=== PATIENT | female | born 1955 | race Caucasian/White ===

== ENCOUNTER 2018-01-25 22:51 | Inpatient (IN) | payer OTHER ==
[2018-01-26] VITALS (15 sets, daily range): BP systolic 121–180; BP diastolic 57–81; PULSE 65–75; RESP 12–20; TEMP 97.5–98.4; O2SAT 93–99
[2018-01-26] MEDS ORDERED: LABETALOL HCL 100 MG/20 ML VIAL ONE (01:27)
[2018-01-26] MEDS: LABETALOL HCL 100 MG/20 ML VIAL IV PUSH PRN ×4 (01:30→21:50)
[2018-01-26] MEDS ORDERED: MAGNESIUM HYDROXIDE SUSP 30 ML CUP PO PRN (01:45)
[2018-01-26] MEDS ORDERED: ACETAMINOPHEN/HYDROcodone 325 MG/5 MG TAB PO PRN (01:45)
[2018-01-26] MEDS ORDERED: RESP: ALBUTEROL 2.5 MG/IPRATROPIUM 0.5 MG NEB (PRN) INH (01:45)
[2018-01-26] MEDS ORDERED: BISACODYL 10 MG SUPP RECTAL PRN ×2 (01:45→19:45)
[2018-01-26] MEDS ORDERED: SODIUM CHLORIDE 0.9% FLUSH 10 ML FLUSH IV FLUSH PRN (01:45)
[2018-01-26] MEDS ORDERED: SENNOSIDES 8.6 MG TAB PO PRN (01:45)
[2018-01-26] MEDS ORDERED: CHLORHEXIDINE GLUCONATE 2 % 1 PACK (2 CLOTHS) TOP PRN (01:45)
[2018-01-26] MEDS ORDERED: NURSING INFORMATION XX SCH (01:45)
[2018-01-26] MEDS ORDERED: LACTULOSE SYRUP 20 GM/30 ML CUP PO PRN (01:45)
[2018-01-26] MEDS ORDERED: ONDANSETRON ODT 4 MG TAB PO PRN (02:00)
[2018-01-26] MEDS: NS + KCL 20 MEQ INJ 1,000 ML IV SCH ×4 (02:03→20:00)
--- NOTE | 2018-01-26 02:05 | HHI.HP ---
HPI Service Critical Care Medicine Primary Care Physician Unknown Admission Diagnosis Diagnosis: Chief Complaint: Severe headache since 5 weeks Travel History International Travel<30 Days: No Contact w/Intl Traveler <30 Da: No Traveled to Known Affected Are: No History of Present Illness 62-year-old female who presented to [facility] on 01/25/2018 with headache going on for 5 weeks. She describes the headache as stabbing in character initially started on the right side however subsequently became generalized and was constant. She denies any history of falls or head trauma recently. She denies being on any blood thinners at home. She recently underwent a breast biopsy about 2 weeks prior to her headache starting. She also has a history of bladder prolapse, mitral valve issues and tremors and has been diagnosed with cervical degenerative disc disease. She also has long- standing dizziness/vertigo secondary to Mnire's disease. Patient was transferred to [facility] as her head CT done at [facility] revealed right-sided subdural hematoma which was discussed with the neurosurgeon on-call at [facility] who recommended transferring patient. Patient was accepted for admission at [place] by Dr. Meyers and received Keppra prior to transfer. I evaluated the patient immediately on being notified of her arrival in the ICU at [place]. At that time she was resting in bed comfortably not in any acute distress. She rated her headache almost gone at this time. She denied any focal weakness in either extremities. She denied any speech disturbance or visual disturbance. She had a systolic blood pressure in the 170s on arrival and received labetalol 10 mg IV. History was obtained by reviewing records and discussion with patient and nursing staff. Review of Systems Constitutional: DENIES: Diaphoretic episodes, Fatigue, Fever, Weight gain, Weight loss, Chills, Dizziness, Change in appetite, Night Sweats Endocrine: DENIES: Abnorml menstrual pattern, Heat/cold intolerance, Polydipsia , Polyuria, Polyphagia Eyes: DENIES: Blurred vision, Diplopia, Eye inflammation, Eye pain, Vision loss , Photosensitivity, Double Vision Ears, nose, mouth, throat: COMPLAINS OF: Vertigo, DENIES: Tinnitus, Hearing loss, Nasal discharge, Oral lesions, Throat pain, Hoarseness, Ear Pain, Running Nose, Epistaxis, Sinus Pain, Toothache, Odynophagia Respiratory: DENIES: Apneas, Cough, Snoring, Wheezing, Hemoptysis, Sputum production, Shortness of breath Cardiovascular: DENIES: Chest pain, Palpitations, Syncope, Dyspnea on Exertion , PND, Lower Extremity Edema, Orthopnea, Claudication Gastrointestinal: DENIES: Abdominal pain, Black stools, Bloody stools, Constipation, Diarrhea, Nausea, Vomiting, Difficulty Swallowing, Anorexia Genitourinary: DENIES: Abnormal vaginal bleeding, Dysmenorrhea, Dyspareunia, Sexual dysfunction, Urinary frequency, Urinary incontinence, Urgency, Hematuria , Dysuria, Nocturia, Vaginal discharge Musculoskeletal: COMPLAINS OF: Back pain, Neck pain, DENIES: Joint pain, Muscle aches, Stiffness, Joint Swelling Integumentary: COMPLAINS OF: Abnormal pigmentation, Pruritus, Rash, Nail changes Hematologic/lymphatic: DENIES: Bruising, Lymphadenopathy Immunologic/allergic: DENIES: Eczema, Urticaria Neurologic: DENIES: Abnormal gait, Headache, Localized weakness, Paresthesias, Seizures, Speech Problems, Tremor, Poor Balance Psychiatric: COMPLAINS OF: Depression Past Family Social History Allergies: Coded Allergies: adhesive (Verified Allergy, Unknown, 01/26/18) gabapentin (Verified Allergy, Unknown, 01/26/18) primidone (Verified Allergy, Unknown, 01/26/18) Past Medical History CAD, GI disorder Past Surgical History Hysterectomy Reported Medications Tylenol 650 mg p.o. twice daily as needed, vitamin C 500 mg p.o. 3 times daily, align 4 mg p.o. daily, Wellbutrin SR 200 mg p.o. twice daily, vitamin D3 2000 units p.o. twice daily, Premarin 0.9 mg p.o. daily, Synthroid 112 mcg p.o. daily , loratadine 10 mg p.o. daily as needed, Protonix 40 mg p.o. daily, simethicone 180 mg p.o. 4 times daily as needed, Percocet as needed, Vicoprofen as needed, Flexeril 5 mg p.o. 3 times daily Family History No significant family history Social History No history of alcohol abuse any other substance abuse Physical Exam Vital Signs Heart rate 70s, blood pressure 170s/70s, respiratory rate 18, O2 sat 98% on room air Physical Exam HEENT/Neuro: No pallor or icterus, tongue moist, MATEO, Awake alert oriented 3 , nonfocal grossly, moving all 4 extremities Neck: No JVD Chest/pulmonary: CTA bilaterally Cardiovascular: S1-S2 regular no gallop or murmur GI/abdomen: Soft, nontender, bowel sounds present Extremities: Warm bilaterally, no edema Laboratory No labs sent over from [facility]. Will obtain stat CBC CMP coags Imaging Head CT done at [facility] reported as chronic right-sided subdural hematoma with some hyperdense elements. Collection measures 13 mm in thickness with 8 mm contralateral shift of the septum pellucidum. This CT scan was done at 1947 hrs. on 01/25/2018. Caprini VTE Risk Assessment Caprini VTE Risk Assessment: Mod/High Risk (score >= 2) VTE Pharm Contraindication: Intracranial lesions Caprini Risk Assessment Model Point Value = 1 Point Value = 2 Point Value = 3 Point Value = 5 Age 41-60 Minor surgery BMI > 25 kg/m2 Swollen legs Varicose veins or History of unexplained or recurrent spontaneous Oral contraceptives or hormone replacement Sepsis (< 1 month) Serious lung disease, including pneumonia (< 1 month) Abnormal pulmonary function Acute myocardial infarction Congestive heart failure (< 1 month) History of inflammatory bowel disease Medical patient at bed rest Age 61-74 Arthroscopic surgery Major open surgery (> 45 min) Laparoscopic surgery (> 45 min) Malignancy Confined to bed (> 72 hours) Immobilizing plaster cast Central venous access Age >= 75 History of VTE Family history of VTE Factor V Leiden Prothrombin [id number] Lupus anticoagulant Anticardiolipin antibodies Elevated serum homocysteine Heparin-induced thrombocytopenia Other congenital or acquired thrombophilia Stroke (< 1 month) Elective arthroplasty Hip, pelvis, or leg fracture Acute spinal cord injury (< 1 month) Prophylaxis Regimen Total Risk Factor Score Risk Level Prophylaxis Regimen 0-1 Low Early ambulation 2 Moderate Order ONE of the following: *Sequential Compression Device (SCD) *Heparin 5000 units SQ BID 3-4 Higher Order ONE of the following medications: *Heparin 5000 units SQ TID *Enoxaparin/Lovenox 40 mg SQ daily (WT < 150 kg, CrCl > 30 mL/min) *Enoxaparin/Lovenox 30 mg SQ daily (WT < 150 kg, CrCl > 10-29 mL/min) *Enoxaparin/Lovenox 30 mg SQ BID (WT < 150 kg, CrCl > 30 mL/min) AND/OR *Sequential Compression Device (SCD) 5 or more Highest Order ONE of the following medications: *Heparin 5000 units SQ TID (Preferred with Epidurals) *Enoxaparin/Lovenox 40 mg SQ daily (WT < 150 kg, CrCl > 30 mL/min) *Enoxaparin/Lovenox 30 mg SQ daily (WT < 150 kg, CrCl > 10-29 mL/min) *Enoxaparin/Lovenox 30 mg SQ BID (WT < 150 kg, CrCl > 30 mL/min) AND *Sequential Compression Device (SCD) Assessment and Plan Assessment and Plan 62-year-old female with: Right-sided subdural hematoma with [id number] midline shift Hypertension Chronic neck pain secondary to C-spine degenerative disc disease Plan: Admitted to ICU N.p.o. Follow neuro checks Keppra for seizure prophylaxis Repeat head CT without contrast Obtain stat labs Labetalol as needed to keep SBP below 1 40 mmHg IV hydration Follow intake output, monitor and replete electrolytes, follow BUN/creatinine Dr. Meyers will be obtaining neurosurgery consult in a.m. Percocet/morphine as needed for pain Bronchodilators as needed GI prophylaxis with Protonix DVT prophylaxis with SCDs Further recommendations following review of head CT and labs Pierce Dowling MD Jan 26, 2018 02:05
[2018-01-26 03:10] LABS: AUTOMATED NEUTROPHIL # 4.3 TH/MM3 (1.8-7.7); BASOPHIL % 0.6 % (0.0-2.0); EOSINOPHIL # 0.1 TH/MM3 (0-0.4); EOSINOPHIL % 1.1 % (0.0-4.0); HEMATOCRIT 40.2 % (35.0-46.0); HEMOGLOBIN 13.3 GM/DL (11.6-15.3); LYMPH % 27.7 % (9.0-44.0); LYMPHOCYTE # 1.9 TH/MM3 (1.0-4.8); MEAN CELL VOLUME 92.6 FL (80.0-100.0); MEAN CORPUSCULAR HEMOGLOBIN 30.6 PG (27.0-34.0); MEAN CORPUSCULAR HGB CONC 33.1 % (32.0-36.0); MEAN PLATELET VOLUME 7.5 FL (7.0-11.0); MONO % 7.4 % (0.0-8.0); MONOCYTE # 0.5 TH/MM3 (0-0.9); NEUT % 63.2 % (16.0-70.0); PLATELET COUNT 234 TH/MM3 (150-450); RED BLOOD COUNT 4.35 MIL/MM3 (4.00-5.30); RED CELL DISTRIBUTION WIDTH 14.3 % (11.6-17.2); WHITE BLOOD COUNT 6.8 TH/MM3 (4.0-11.0)
[2018-01-26 03:23] LABS: ALBUMIN 2.8 GM/DL (3.4-5.0); ALT (GPT) 23 U/L (10-53); AST (GOT) 26 U/L (15-37); BICARBONATE 25.4 MEQ/L (21.0-32.0); BLOOD UREA NITROGEN 14 MG/DL (7-18); CHLORIDE 106 MEQ/L (98-107); GLOMERULAR FILTRATION RATE 63 ML/MIN (>89); GLUCOSE,RANDOM 108 MG/DL (74-106); SODIUM (NA) 140 MEQ/L (136-145)
[2018-01-26 03:25] LABS: ALKALINE PHOSPHATASE 91 U/L (45-117); TOTAL BILIRUBIN ADULT 0.3 MG/DL (0.2-1.0); TOTAL PROTEIN 6.1 GM/DL (6.4-8.2)
[2018-01-26] MEDS: CHLORHEXIDINE GLUCONATE 2 % 1 PACK (2 CLOTHS) TOP SCH (04:00)
[2018-01-26 04:46] LABS: PROTHROMBIN TIME - PATIENT 10.5 SEC (9.8-11.6)
[2018-01-26] MEDS: MORPHINE SULFATE 4 MG/ML INJ IV PUSH PRN ×3 (05:31→14:56)
--- NOTE | 2018-01-26 06:36 | RADRPT ---
EXAM DATE: 01/26/2018 5:27 AM EDT AGE/SEX: 62 years / Female INDICATIONS: Cephalgia; subdural bleed. CLINICAL DATA: This is the patient's initial encounter. Patient reports that signs and symptoms have been present for 1 day and indicates a pain score of 4/10. MEDICAL/SURGICAL HISTORY: None. None. RADIATION DOSE: 56.35 CTDI (mGy) COMPARISON: No prior exams available for comparison. TECHNIQUE: CT of the head without contrast. Using automated exposure control and adjustment of the mA and/or kV according to patient size, radiation dose was kept as low as reasonably achievable to ob tain optimal diagnostic quality images. DICOM format image data is available electronically for revi ew and comparison. FINDINGS: Cerebrum: The ventricles are normal for age. No evidence of mass lesion, hemorrhage or acute infar ction. There is a subdural hygroma on the right side without any active blood products. There is some mass effect with shift of the septum pellucidum by 3 to 4 mm. There is sulcal effacement on the righ t Posterior Fossa: The cerebellum and brainstem are intact. The 4th ventricle is midline. The cerebe llopontine angle is unremarkable. Extracranial: The visualized portion of the orbits is intact. Skull: The calvaria is intact. No evidence of skull fracture. CONCLUSION: 1. Right-sided subdural hygroma with mass effect on the brain parenchyma and shift from right to lef t. No active hemorrhage is seen. Electronically signed by: Alfredo Molina MD 01/26/2018 6:34 AM EDT
[2018-01-26] MEDS: SODIUM CHLORIDE 0.9% FLUSH 10 ML FLUSH IV FLUSH SCH ×2 (08:06→21:00)
[2018-01-26] MEDS: levETIRAcetam INJ 500 MG in SODIUM CHLORIDE 0.9% INJ 100 ML IV SCH ×2 (08:06→21:00)
[2018-01-26] MEDS ORDERED: FAMOTIDINE 20 MG/2 ML VIAL IV PUSH SCH (09:00)
[2018-01-26] MEDS ORDERED: DOCUSATE SODIUM 50 MG/SENNA 8.6 MG TAB PO SCH (09:00)
[2018-01-26] MEDS ORDERED: PANTOPRAZOLE SODIUM 40 MG VIAL IV PUSH SCH (09:00)
--- NOTE | 2018-01-26 10:51 | PD.CONS ---
(Luis Gomez MD) [facility] Service neurosurgery Consult Requested By Primary Care Physician Unknown (Luis Gomez MD) Service Neurosurgery Consult Requested By Dr. Stein Reason for Consult subdural hygroma, subacute, with shift, but neurologically stable History of Present Illness Ms. Valenzuela is a 62 year old female who complains of headaches that was worsening over the last 5 weeks. She initially presented to [facility] yesterday 01/25/2018 due to intractable headaches. CT brain was obtained which showed a right subdural hematoma and she was transferred to [facility] for neurosurgical evaluation. The patient denies any history of trauma, falling, head injury or whiplash type injuries. She denies focal weakness, seizures, vision changes, paresthesias, nausea or vomiting. Repeat CT Brain here at [place] shows a right-sided subdural hygroma with mass effect on the brain parenchyma and shift from right to left. No active hemorrhage is seen. Neurosurgical evaluation was requested. (Karol Hilario) Review of Systems Constitutional: DENIES: Fever, Chills Eyes: DENIES: Vision loss Respiratory: DENIES: Cough, Hemoptysis, Shortness of breath Cardiovascular: DENIES: Chest pain Gastrointestinal: DENIES: Abdominal pain, Bloody stools, Nausea, Vomiting Genitourinary: DENIES: Urinary incontinence Musculoskeletal: COMPLAINS OF: Stiffness, Neck pain Neurologic: COMPLAINS OF: Headache, DENIES: Localized weakness, Paresthesias, Seizures, Speech Problems (Karol Hilario) Past Family Social History Allergies: Coded Allergies: adhesive (Verified Allergy, Unknown, 01/26/18) gabapentin (Verified Allergy, Unknown, 01/26/18) primidone (Verified Allergy, Unknown, 01/26/18) Past Medical History GI disorder Past Surgical History Hysterectomy Reported Medications Tylenol 650 mg p.o. twice daily as needed, vitamin C 500 mg p.o. 3 times daily, align 4 mg p.o. daily, Wellbutrin SR 200 mg p.o. twice daily, vitamin D3 2000 units p.o. twice daily, Premarin 0.9 mg p.o. daily, Synthroid 112 mcg p.o. daily , loratadine 10 mg p.o. daily as needed, Protonix 40 mg p.o. daily, simethicone 180 mg p.o. 4 times daily as needed, Percocet as needed, Vicoprofen as needed, Flexeril 5 mg p.o. 3 times daily Active Ordered Medications Current Medications Medications (Trade) Dose Ordered Sig/Bianka Route PRN Reason Start Time Stop Time Status Last Admin Dose Admin Potassium Chloride/Sodium Chloride 1,000 ml @ 100 mls/hr Q10H IV 01/26/18 01:37 01/26/18 12:15 Sodium Chloride (NS Flush) 2 ml UNSCH PRN IV FLUSH FLUSH AFTER USING IV ACCESS 01/26/18 01:45 Sodium Chloride (NS Flush) 2 ml BID IV FLUSH 01/26/18 09:00 01/26/18 08:06 Acetaminophen/ Hydrocodone Bitart ([place] 5-325 Mg) 1 tab Q4H PRN PO PAIN SCALE 1 TO 5 01/26/18 01:45 Morphine Sulfate (Morphine Inj) 2 mg Q2H PRN IV PUSH PAIN SCALE 6 TO 10 01/26/18 01:45 01/26/18 14:56 Ondansetron HCl (Zofran Odt) 4 mg Q6H PRN PO NAUSEA OR VOMITING 01/26/18 02:00 Albuterol/ Ipratropium (Duoneb Neb) 1 ampule Q2HR NEB PRN INH WHEEZING 01/26/18 01:45 Miscellaneous Information ([facility] Nursing Information) 1 Q361D XX 01/26/18 01:45 Chlorhexidine Gluconate (Chlorhexidine 2% Cloth) 3 pack Taper DAILY@04 TOP 01/26/18 04:00 01/22/19 03:59 01/26/18 04:00 Chlorhexidine Gluconate (Chlorhexidine 2% Cloth) 3 pack UNSCH PRN TOP HYGIENIC CARE 01/26/18 01:45 Senna/Docusate Sodium (Angélica-Colace) 1 tab BID PO 01/26/18 09:00 01/26/18 08:07 Magnesium Hydroxide (Milk Of Magnesia Liq) 30 ml Q12H PRN PO Mild constipation 01/26/18 01:45 Sennosides (Senokot) 17.2 mg Q12H PRN PO Moderate constipation 01/26/18 01:45 Bisacodyl (Dulcolax Supp) 10 mg DAILY PRN RECTAL SEVERE CONSITIPATION 01/26/18 01:45 Lactulose (Lactulose Liq) 30 ml DAILY PRN PO SEVERE CONSITIPATION 01/26/18 01:45 Levetriacetam 500 mg/Sodium Chloride 105 ml @ 420 mls/hr Q12HR IV 01/26/18 09:00 01/26/18 08:06 Labetalol HCl (Trandate Inj) 10 mg Q4H PRN IV PUSH SBP greater than 140mm Hg 01/26/18 01:45 01/26/18 12:16 Pantoprazole Sodium (Protonix Inj) 40 mg Q24H IV PUSH 01/26/18 09:00 01/26/18 08:07 Family History No significant family history Social History Denies tobacco, etoh, or illicit drug use (Karol Hilario) Physical Exam Vital Signs Vital Signs Date Time Temp Pulse Resp B/P (MAP) Pulse Ox O2 Delivery O2 Flow Rate FiO2 01/26/18 10:00 65 01/26/18 09:36 98 01/26/18 08:00 98.2 68 14 135/61 (85) 94 01/26/18 08:00 68 01/26/18 07:00 72 01/26/18 07:00 97 Room Air 01/26/18 06:26 93 01/26/18 06:00 72 01/26/18 04:00 97.9 70 12 121/57 (78) 94 01/26/18 04:00 66 01/26/18 02:00 67 01/26/18 01:30 73 01/26/18 01:30 Room Air Physical Exam The patient is alert, awake and oriented to time, place and person. Speech is fluent. Cranial nerve examination: pupils to be equal, round and reactive to light. Extra-ocular movements are intact. Facial motor and sensory function are normal and symmetrical. Gross hearing appears intact. Sternocleidomastoid and trapezius muscles are symmetrical. Other cranial nerves are intact. Neck is soft and supple with a good range of motion without pain. Muscle strength shows mild weakness in her left upper extremity with a pronator drift. Sensory examination is intact to light touch and pin prick in both the upper and lower extremities. Deep tendon reflexes are symmetrical in both upper and lower extremities. There is a bilateral plantar flexion response. Cerebellar examination is unremarkable, without deficits. Chest/pulmonary: CTA bilaterally Cardiovascular: S1-S2 regular no gallop or murmur GI/abdomen: Soft, nontender, bowel sounds present Extremities: Warm bilaterally, no edema Skin. Warm and dry Laboratory Laboratory Tests Test 01/26/18 02:53 01/26/18 04:11 White Blood Count 6.8 Red Blood Count 4.35 Hemoglobin 13.3 Hematocrit 40.2 Mean Corpuscular Volume 92.6 Mean Corpuscular Hemoglobin 30.6 Mean Corpuscular Hemoglobin Concent 33.1 Red Cell Distribution Width 14.3 Platelet Count 234 Mean Platelet Volume 7.5 Neutrophils (%) (Auto) 63.2 Lymphocytes (%) (Auto) 27.7 Monocytes (%) (Auto) 7.4 Eosinophils (%) (Auto) 1.1 Basophils (%) (Auto) 0.6 Neutrophils # (Auto) 4.3 Lymphocytes # (Auto) 1.9 Monocytes # (Auto) 0.5 Eosinophils # (Auto) 0.1 Basophils # (Auto) 0.0 CBC Comment DIFF FINAL Differential Comment Nasal Screen MRSA (PCR) MRSA NOT DETECTED Blood Urea Nitrogen 14 Creatinine 0.90 Random Glucose 108 Total Protein 6.1 Albumin 2.8 Calcium Level 8.0 Phosphorus Level 3.0 Magnesium Level 2.0 Alkaline Phosphatase 91 Aspartate Amino Transf (AST/SGOT) 26 Alanine Aminotransferase (ALT/SGPT) 23 Total Bilirubin 0.3 Sodium Level 140 Potassium Level 4.0 Chloride Level 106 Carbon Dioxide Level 25.4 Anion Gap 9 Estimat Glomerular Filtration Rate 63 Prothrombin Time 10.5 Prothromb Time International Ratio 1.0 Activated Partial Thromboplast Time 28.0 (Luis Gomez MD) Result Diagram: 01/26/18 0253 01/26/18 0253 Imaging Last Impressions Head CT 01/26/18 0600 Signed Impressions: CONCLUSION: 1. Right-sided subdural hygroma with mass effect on the brain parenchyma and s hift from right to left. No active hemorrhage is seen. (Karol Hilario) Attending Statement 62-year-old female with: Right-sided subdural hematoma with [id number] midline shift Hypertension Chronic neck pain secondary to C-spine degenerative disc disease I review her clinical findings on her radiological studies Her Head CT done at [facility] reported as chronic right-sided subdural hematoma with some hyperdense elements. Collection measures 13 mm in thickness with 8 mm contralateral shift of the septum pellucidum right to left. This CT scan was done at 1947 hrs. on 01/25/2018. I discussed the alternatives of treatment with the patient. Given the sizable subdural hematoma, mass-effect and midline shift, and her symptoms which are getting progressively worse, I recommend surgical evacuation of the hematoma, via frontal border hole with evacuation of the hematoma. We have discussed the details including the [id number] details of the surgical procedure, its indications, alternatives, risks, and potential complications. Risks and potential complications include, but are not limited to, infection, blood loss, CSF leak, partial or complete loss of sight in one or both eyes, paresis, paralysis, permanent pain or difficulty swallowing, loss of bowel or bladder function, complications from anesthesia, blood clot, stroke, myocardial infarction, or even . Follow neuro checks every 1 hr Delaney for seizure prophylaxis Repeat head CT without contrast following her surgery Hypertension Labetalol as needed to keep SBP below 1 40 mmHg Mild dehydration IV hydration Follow intake output, monitor and replete electrolytes, follow BUN/creatinine Percocet/morphine as needed for pain Pulmonary. aggressive pulmonary toilette, nasotracheal suction, and breathing treatments with nebulizers. Daily PT and OT Renal. Continue to monitor closely urine output, BUN and creatinine Endocrine. Continue to Monitor serial Acu checks and SSI as needed in detail ID continue to monitor for signs of infection Continue Protonix for stress ulcer prophylaxis Continue Bryant hose and SCD's for DVT prophylaxis Caprini VTE Risk Assessment Caprini VTE Risk Assessment: Mod/High Risk (score >= 2) VTE Pharm Contraindication: Intracranial lesions Caprini Risk Assessment Model Point Value = 1 Point Value = 2 Point Value = 3 Point Value = 5 Age 41-60 Minor surgery BMI > 25 kg/m2 Swollen legs Varicose veins or History of unexplained or recurrent spontaneous Oral contraceptives or hormone replacement Sepsis (< 1 month) Serious lung disease, including pneumonia (< 1 month) Abnormal pulmonary function Acute myocardial infarction Congestive heart failure (< 1 month) History of inflammatory bowel disease Medical patient at bed rest Age 61-74 Arthroscopic surgery Major open surgery (> 45 min) Laparoscopic surgery (> 45 min) Malignancy Confined to bed (> 72 hours) Immobilizing plaster cast Central venous access Age >= 75 History of VTE Family history of VTE Factor V Leiden Prothrombin [id number] Lupus anticoagulant Anticardiolipin antibodies Elevated serum homocysteine Heparin-induced thrombocytopenia Other congenital or acquired thrombophilia Stroke (< 1 month) Elective arthroplasty Hip, pelvis, or leg fracture Acute spinal cord injury (< 1 month) Prophylaxis Regimen Total Risk Factor Score Risk Level Prophylaxis Regimen 0-1 Low Early ambulation 2 Moderate Order ONE of the following: *Sequential Compression Device (SCD) *Heparin 5000 units SQ BID 3-4 Higher Order ONE of the following medications: *Heparin 5000 units SQ TID *Enoxaparin/Lovenox 40 mg SQ daily (WT < 150 kg, CrCl > 30 mL/min) *Enoxaparin/Lovenox 30 mg SQ daily (WT < 150 kg, CrCl > 10-29 mL/min) *Enoxaparin/Lovenox 30 mg SQ BID (WT < 150 kg, CrCl > 30 mL/min) AND/OR *Sequential Compression Device (SCD) 5 or more Highest Order ONE of the following medications: *Heparin 5000 units SQ TID (Preferred with Epidurals) *Enoxaparin/Lovenox 40 mg SQ daily (WT < 150 kg, CrCl > 30 mL/min) *Enoxaparin/Lovenox 30 mg SQ daily (WT < 150 kg, CrCl > 10-29 mL/min) *Enoxaparin/Lovenox 30 mg SQ BID (WT < 150 kg, CrCl > 30 mL/min) AND *Sequential Compression Device (SCD) The exam, history, and the medical decision-making described in the above note were completed with the assistance of the mid-level provider. I reviewed and agree with the findings presented. I attest that I had a [id number] encounter with the patient on the same day, and personally performed and documented my assessment and findings in the medical record. (Luis Gomez MD) Luis Gomez MD Jan 26, 2018 10:50 Karol Hilario Jan 26, 2018 16:08
[2018-01-26] MEDS ORDERED: ROCURONIUM INJ 50 MG/5 ML SYRINGE IV PUSH ONE (12:00)
[2018-01-26] MEDS ORDERED: DEXAMETHASONE SOD PHOS 4 MG/ML VIAL IV ONE (12:00)
[2018-01-26] MEDS ORDERED: ceFAZolin INJ 1,000 MG VIAL IV ONE ×2 (12:00→18:45)
[2018-01-26] MEDS ORDERED: LIDOCAINE HCL 1% PF 5 ML SYRINGE OTHER ONE (12:00)
[2018-01-26] MEDS ORDERED: LACTATED RINGER'S 1000 ML INJ 1,000 ML IV ONE (12:00)
[2018-01-26] MEDS ORDERED: PROPOFOL 200 MG/20 ML AMP IV ONE (12:00)
[2018-01-26] MEDS ORDERED: PHENYLEPH/NS 1000 MCG/10 ML SYR IV ONE (12:00)
[2018-01-26] MEDS ORDERED: ONDANSETRON HCL 4 MG/2 ML VIAL IV PUSH ONE (12:00)
[2018-01-26] MEDS ORDERED: ePHEDrine/NS 25 MG/5 ML SYRINGE IV ONE (12:00)
[2018-01-26] MEDS ORDERED: THROMBIN (TOPICAL) 5,000 UNIT VIAL ONE (17:39)
[2018-01-26] MEDS ORDERED: GELATIN 12 MM/7 MM FOAM ONE (17:39)
[2018-01-26] MEDS ORDERED: GENTAMICIN SULFATE 80 MG/2 ML VIAL ONE (17:39)
[2018-01-26] MEDS ORDERED: BACITRACIN TOP OINT 15 GM TUBE ONE (17:39)
[2018-01-26] MEDS ORDERED: LIDOCAINE 1%/EPINEPHrine 1:100,000 SOLN 30 ML VIAL ONE (17:53)
[2018-01-26] MEDS ORDERED: ACETAMINOPHEN 1000 MG/100 ML 100 ML IV ONE (18:45)
[2018-01-26] MEDS ORDERED: SUGAMMADEX SODIUM 200 MG/2 ML VIAL IV PUSH ONE (19:16)
--- NOTE | 2018-01-26 19:42 | PD.OP ---
Operative Report Date of Surgery: Jan 26, 2018 Preoperative Diagnosis: Right chronic subdural hematoma Postoperative Diagnosis: Right chronic subdural hematoma Procedure: Right frontal nicole hole, evacuation of subdural hematoma Anesthesia: general endotracheal Surgeon: Luis Gomez Route Driver(s): Mr Del RioGreyson Operation and Findings: INDICATIONS FOR THE PROCEDURE Ms. Valenzuela is a 62 year old female who complains of headaches that was worsening over the last 5 weeks. She initially presented to [facility] yesterday 01/25/2018 due to intractable headaches. CT brain was obtained which showed a right subdural hematoma and she was transferred to [facility] for neurosurgical evaluation. We have discussed the details including the [id number] details of the surgical procedure, its indications, alternatives, risks, and potential complications. Risks and potential complications include, but are not limited to, infection, blood loss, CSF leak, partial or complete loss of sight in one or both eyes, paresis, paralysis, permanent pain or difficulty swallowing, loss of bowel or bladder function, complications from anesthesia, blood clot, stroke , myocardial infarction, or even . DETAILS OF THE SURGICAL PROCEDURE Following the induction of general anesthesia, endotracheal intubation was performed. A Ahmadi catheter, bilateral VITALY hose and sequential compression devices were placed and kept throughout the procedure. The patient was positioned supine on a 30/80 table with the head over a gel doughnut. All pressure points were carefully padded with eggcrate mattress. The right.frontal region was shaved, prepped and draped in the usual sterile fashion. A linear incision was outlined on the scalp and infiltrated with 1% lidocaine with epinephrine. A skin incision was made with a #10 blade down to the level of the periosteum. Using the Midas Taurus a nicole hole was made. Small bleeders were coagulated with a bipolar. The dura was carefully coagulated with the bipolar in a cruciform fashion and opened with a 15 blade. A subdural hematoma , which was under increased pressure was evacuated. A specimen was sent to the lab histological evaluation. The subdural space was irrigated with saline until clear, and the subdural drain was left in the subdural space and externalized through a separate stab incision. The incision was thoroughly irrigated with antibiotic solution. The incision was then closed in layers, 3-0 Vicryl with interrupted sutures were used to close the galea. Yanet were applied to the skin and the drain was secured with 3-0 nylon. At the end of the procedure, the sponge, needle and instrument counts were all correct. Estimated blood loss were less than 10 cc. No blood transfusion was given. No intraoperative complications occurred. The patient received prophylactic antibiotics. The patient was then extubated and transferred to recovery room in a stable condition. Luis Gomez MD Jan 26, 2018 19:42
[2018-01-26] MEDS ORDERED: levETIRAcetam 500 MG/5 ML VIAL IV ONE (19:44)
[2018-01-26] MEDS ORDERED: POTASSIUM CHLOR 20 MEQ PREMIX 100 ML IV PRN (19:45)
[2018-01-26] MEDS ORDERED: CALCIUM GLUCONATE 10% 1 GM/10 ML VIAL IV PRN (19:45)
[2018-01-26] MEDS ORDERED: ACETAMINOPHEN 325 MG TAB PO PRN (19:45)
[2018-01-26] MEDS ORDERED: ACETAMINOPHEN/HYDROcodone 325 MG/10 MG TAB PO PRN (19:45)
[2018-01-26] MEDS ORDERED: levETIRAcetam INJ 500 MG in SODIUM CHLORIDE 0.9% INJ 100 ML IV SCH (19:45)
[2018-01-26] MEDS ORDERED: MORPHINE SULFATE 4 MG/ML INJ IV PUSH PRN ×2 (19:45)
[2018-01-26] MEDS ORDERED: MAGNESIUM SULFATE INJ 4 GM in SODIUM CHLORIDE 0.9% INJ 100 ML IV PRN (19:45)
[2018-01-26] MEDS ORDERED: ceFAZolin 2 GM PREMIX 50 ML IV SCH (20:00)
[2018-01-26] MEDS ORDERED: MIDAZOLAM HCL 2 MG/2 ML VIAL ONE (20:00)
[2018-01-26] MEDS ORDERED: DO NOT ADM ANY ANTICOAGULANT DRUGS PRN (20:02)
[2018-01-26] MEDS: DOCUSATE SODIUM 100 MG CAP PO SCH (21:00)
[2018-01-27] VITALS (12 sets, daily range): BP systolic 112–163; BP diastolic 54–70; PULSE 62–77; RESP 15–18; TEMP 97.6–98.3; O2SAT 92–97
[2018-01-27] MEDS: ceFAZolin 2 GM PREMIX 50 ML IV SCH ×3 (01:06→17:36)
[2018-01-27] MEDS: LABETALOL HCL 100 MG/20 ML VIAL IV PUSH PRN ×2 (01:13→07:51)
[2018-01-27] MEDS ORDERED: niCARdipine INJ 25 MG in SODIUM CHLOR 0.9% 250 ML INJ 250 ML IV PRN (01:45)
[2018-01-27] MEDS: ACETAMINOPHEN/HYDROcodone 325 MG/10 MG TAB PO PRN ×3 (03:07→20:50)
[2018-01-27] MEDS: CHLORHEXIDINE GLUCONATE 2 % 1 PACK (2 CLOTHS) TOP SCH (03:19)
[2018-01-27] MEDS: NS + KCL 20 MEQ INJ 1,000 ML IV SCH ×2 (05:08→17:35)
[2018-01-27 06:25] LABS: AUTOMATED NEUTROPHIL # 6.1 TH/MM3 (1.8-7.7); BASOPHIL % 0.2 % (0.0-2.0); HEMATOCRIT 39.2 % (35.0-46.0); LYMPH % 10.8 % (9.0-44.0); LYMPHOCYTE # 0.8 TH/MM3 (1.0-4.8); MEAN CELL VOLUME 92.6 FL (80.0-100.0); MEAN CORPUSCULAR HEMOGLOBIN 30.8 PG (27.0-34.0); MEAN CORPUSCULAR HGB CONC 33.2 % (32.0-36.0); MEAN PLATELET VOLUME 7.5 FL (7.0-11.0); MONO % 3.3 % (0.0-8.0); MONOCYTE # 0.2 TH/MM3 (0-0.9); NEUT % 85.7 % (16.0-70.0); PLATELET COUNT 229 TH/MM3 (150-450); RED BLOOD COUNT 4.23 MIL/MM3 (4.00-5.30); WHITE BLOOD COUNT 7.2 TH/MM3 (4.0-11.0)
[2018-01-27 06:48] LABS: BICARBONATE 24.2 MEQ/L (21.0-32.0); CALCIUM 8.2 MG/DL (8.5-10.1); CREATININE 0.72 MG/DL (0.50-1.00)
[2018-01-27] MEDS: PANTOPRAZOLE SODIUM 40 MG VIAL IVP SCH (09:00)
[2018-01-27] MEDS: ONDANSETRON HCL 4 MG/2 ML VIAL IV PUSH PRN (09:13)
[2018-01-27] MEDS: PANTOPRAZOLE SOD 40 MG DELAYED RELEASE TAB PO SCH (09:13)
[2018-01-27] MEDS: DOCUSATE SODIUM 100 MG CAP PO SCH ×2 (09:13→20:36)
[2018-01-27] MEDS: levETIRAcetam INJ 500 MG in SODIUM CHLORIDE 0.9% INJ 100 ML IV SCH ×2 (09:14→20:36)
[2018-01-27] MEDS: SODIUM CHLORIDE 0.9% FLUSH 10 ML FLUSH IV FLUSH SCH ×2 (09:14→20:37)
--- NOTE | 2018-01-27 11:01 | HHI.CCPN ---
Subjective Remarks/Hospital Course 01/26: 62-year-old female who presented to [facility] on 01/25/2018 with headache going on for 5 weeks. She describes the headache as stabbing in character initially started on the right side however subsequently became generalized and was constant. She denies any history of falls or head trauma recently. She denies being on any blood thinners at home. She recently underwent a breast biopsy about 2 weeks prior to her headache starting. She also has a history of bladder prolapse, mitral valve issues and tremors and has been diagnosed with cervical degenerative disc disease. She also has long- standing dizziness/vertigo secondary to Mnire's disease. Patient was transferred to [facility] as her head CT done at [facility] revealed right-sided subdural hematoma which was discussed with the neurosurgeon on-call at [facility] who recommended transferring patient. Patient was accepted for admission at [place] by Dr. Meyers and received Keppra prior to transfer. I evaluated the patient immediately on being notified of her arrival in the ICU at [place]. At that time she was resting in bed comfortably not in any acute distress. She rated her headache almost gone at this time. She denied any focal weakness in either extremities. She denied any speech disturbance or visual disturbance. She had a systolic blood pressure in the 170s on arrival and received labetalol 10 mg IV. History was obtained by reviewing records and discussion with patient and nursing staff. 01/27: Resting in bed comfortably. Underwent drainage of subdural hematoma on by Dr. Gomez. Objective Vital Signs Date Time Temp Pulse Resp B/P (MAP) Pulse Ox O2 Delivery O2 Flow Rate FiO2 01/27/18 10:00 70 01/27/18 08:00 Room Air 01/27/18 04:20 18 01/27/18 04:00 97.6 112/54 (73) 92 01/26/18 21:14 2 01/26/18 15:46 21 Intake and Output 01/27/18 01/27/18 01/28/18 08:00 16:00 00:00 Intake Total 1450 ml Output Total 820 ml Balance 630 ml Result Diagram: 01/27/18 04401/27/[address] done at [facility] reported as chronic right-sided subdural hematoma with some hyperdense elements. Collection measures 13 mm in thickness with 8 mm contralateral shift of the septum pellucidum. This CT scan was done at 1947 hrs. on 01/25/2018. Objective Remarks HEENT/Neuro: No pallor or icterus, tongue moist, MATEO, Awake alert oriented 3 , nonfocal grossly, moving all 4 extremities. ADALBERTO drain in place over bur hole site Neck: No JVD Chest/pulmonary: CTA bilaterally Cardiovascular: S1-S2 regular no gallop or murmur GI/abdomen: Soft, nontender, bowel sounds present Extremities: Warm bilaterally, no edema A/P Assessment and Plan 62-year-old female with: Right-sided subdural hematoma with [id number] midline shift Hypertension Chronic neck pain secondary to C-spine degenerative disc disease Plan: Admitted to ICU P.o. diet as tolerated Follow neuro checks Keppra for seizure prophylaxis Labetalol as needed to keep SBP below 1 40 mmHg. Norvasc 10 mg p.o. daily IV hydration Follow intake output, monitor and replete electrolytes, follow BUN/creatinine Neurosurgery following. Status post bur hole with evacuation of subdural hematoma on 01/26 Percocet/morphine as needed for pain Bronchodilators as needed GI prophylaxis with Protonix DVT prophylaxis with SCDs Consult and transfer to hospitalist service for further medical management. Pierce Dowling MD Jan 27, 2018 11:01
--- NOTE | 2018-01-27 13:43 | HHI.NSPN ---
(Karol Hilario) Note Status Status: Progress Note (Karol Hilario) Interval History Interval History Ms. Valenzuela is a 62 year old female who complains of headaches that was worsening over the last 5 weeks. She initially presented to [facility] yesterday 01/25/2018 due to intractable headaches. CT brain was obtained which showed a right subdural hematoma and she was transferred to [facility] for neurosurgical evaluation. The patient denies any history of trauma, falling, head injury or whiplash type injuries. She denies focal weakness, seizures, vision changes, paresthesias, nausea or vomiting. Repeat CT Brain here at [place] shows a right-sided subdural hygroma with mass effect on the brain parenchyma and shift from right to left. No active hemorrhage is seen. Neurosurgical evaluation was requested. s/p right frontal nicole hole for evacuation of subdural hematoma 01/26/18 6: POD 1 mild nausea, mild surgical pain, otherwise feels well. denies new neurological complaints. (Karol Hilario) Labs, Micro, & Vital Signs Results Date Time Temp Pulse Resp B/P (MAP) Pulse Ox O2 Delivery O2 Flow Rate FiO2 01/27/18 10:00 70 01/27/18 08:00 62 01/27/18 08:00 Room Air 01/27/18 08:00 70 01/27/18 06:00 64 01/27/18 04:20 18 01/27/18 04:00 97.6 75 16 112/54 (73) 92 01/27/18 04:00 64 01/27/18 02:15 64 156/74 01/27/18 02:00 64 01/27/18 00:20 97 01/27/18 00:00 64 01/27/18 00:00 97.9 63 18 163/70 (101) 97 01/26/18 21:37 97.5 73 18 180/81 (114) 99 01/26/18 21:14 98.2 73 16 149/70 (96) 97 Nasal Cannula 2 01/26/18 21:10 73 16 156/67 (96) 98 Nasal Cannula 2 01/26/18 21:00 76 16 161/73 (102) 98 Nasal Cannula 2 01/26/18 20:45 75 15 172/76 (108) 97 Nasal Cannula 2 01/26/18 20:30 77 14 160/70 (100) 97 Nasal Cannula 2 01/26/18 20:15 76 14 163/64 (97) 98 Nasal Cannula 2 01/26/18 20:00 82 12 179/79 (112) 97 Nasal Cannula 4 01/26/18 19:56 98.3 91 14 175/78 (110) 96 Nasal Cannula 4 01/26/18 18:05 98.2 75 22 166/74 (104) 96 01/26/18 18:05 75 01/26/18 16:00 70 01/26/18 16:00 98.2 70 13 157/70 (99) 94 01/26/18 15:46 94 21 01/26/18 14:00 70 Constitutional Vital Signs Date Time Temp Pulse Resp B/P (MAP) Pulse Ox O2 Delivery O2 Flow Rate FiO2 01/27/18 10:00 70 01/27/18 08:00 62 01/27/18 08:00 Room Air 01/27/18 08:00 70 01/27/18 06:00 64 01/27/18 04:20 18 01/27/18 04:00 97.6 75 16 112/54 (73) 92 01/27/18 04:00 64 01/27/18 02:15 64 156/74 01/27/18 02:00 64 01/27/18 00:20 97 01/27/18 00:00 64 01/27/18 00:00 97.9 63 18 163/70 (101) 97 01/26/18 21:37 97.5 73 18 180/81 (114) 99 01/26/18 21:14 98.2 73 16 149/70 (96) 97 Nasal Cannula 2 01/26/18 21:10 73 16 156/67 (96) 98 Nasal Cannula 2 01/26/18 21:00 76 16 161/73 (102) 98 Nasal Cannula 2 01/26/18 20:45 75 15 172/76 (108) 97 Nasal Cannula 2 01/26/18 20:30 77 14 160/70 (100) 97 Nasal Cannula 2 01/26/18 20:15 76 14 163/64 (97) 98 Nasal Cannula 2 01/26/18 20:00 82 12 179/79 (112) 97 Nasal Cannula 4 01/26/18 19:56 98.3 91 14 175/78 (110) 96 Nasal Cannula 4 01/26/18 18:05 98.2 75 22 166/74 (104) 96 01/26/18 18:05 75 01/26/18 16:00 70 01/26/18 16:00 98.2 70 13 157/70 (99) 94 01/26/18 15:46 94 21 01/26/18 14:00 70 (Karol Hilario) Physical Exam Ms. Valenzuela is alert, awake and oriented to time, place and person. Speech is fluent. Right frontal wound clean and dry, with ADALBERTO drainage catheter in place. Cranial nerve examination: pupils equal, round and reactive to light. Extra- ocular movements are intact. Facial motor are normal and symmetrical. Neck is soft and supple Muscle strength is normal in all muscle groups of both upper and lower extremities. Cerebellar examination is unremarkable, without deficits. (Karol Hilario) Medications Current Medications Current Medications Medications (Trade) Dose Ordered Sig/Bianka Route PRN Reason Start Time Stop Time Status Last Admin Dose Admin Sodium Chloride (NS Flush) 2 ml UNSCH PRN IV FLUSH FLUSH AFTER USING IV ACCESS 01/26/18 01:45 Sodium Chloride (NS Flush) 2 ml BID IV FLUSH 01/26/18 09:00 01/27/18 09:14 Ondansetron HCl (Zofran Odt) 4 mg Q6H PRN PO NAUSEA OR VOMITING 01/26/18 02:00 Albuterol/ Ipratropium (Duoneb Neb) 1 ampule Q2HR NEB PRN INH WHEEZING 01/26/18 01:45 Miscellaneous Information ([facility] Nursing Information) 1 Q361D XX 01/26/18 01:45 Chlorhexidine Gluconate (Chlorhexidine 2% Cloth) 3 pack Taper DAILY@04 TOP 01/26/18 04:00 01/22/19 03:59 01/27/18 03:19 Chlorhexidine Gluconate (Chlorhexidine 2% Cloth) 3 pack UNSCH PRN [facility] 01/26/18 01:45 Magnesium Hydroxide (Milk Of Magnesia Liq) 30 ml Q12H PRN PO Mild constipation 01/26/18 01:45 Sennosides (Senokot) 17.2 mg Q12H PRN PO Moderate constipation 01/26/18 01:45 Lactulose (Lactulose Liq) 30 ml DAILY PRN PO SEVERE CONSITIPATION 01/26/18 01:45 Levetriacetam 500 mg/Sodium Chloride 105 ml @ 420 mls/hr Q12HR IV 01/26/18 09:00 01/27/18 09:14 Labetalol HCl (Trandate Inj) 10 mg Q4H PRN IV PUSH SBP greater than 140mm Hg 01/26/18 01:45 01/27/18 07:51 Potassium Chloride/Sodium Chloride 1,000 ml @ 100 mls/hr Q10H IV 01/26/18 20:00 01/27/18 05:08 Bisacodyl (Dulcolax Supp) 10 mg DAILY PRN RECTAL CONSTIPATION 01/26/18 19:45 Docusate Sodium (Colace) 100 mg BID PO 01/26/18 21:00 01/27/18 09:13 Pantoprazole Sodium (Protonix) 40 mg DAILY PO 01/27/18 09:00 01/27/18 09:13 Pantoprazole Sodium (Protonix Inj) 40 mg DAILY IVP 01/27/18 09:00 Ondansetron HCl (Zofran Inj) 4 mg Q6H PRN IV PUSH NAUSEA OR VOMITING 01/26/18 19:45 01/27/18 09:13 Calcium Gluconate (Calcium Gluconate Inj) 1 gm UNSCH PRN IV SEE LABEL COMMENTS 01/26/18 19:45 Potassium Chloride 100 ml @ 50 mls/hr UNSCH PRN IV POTASSIUM LESS THAN 4 01/26/18 19:45 Magnesium Sulfate 4 gm/Sodium Chloride 108 ml @ 108 mls/hr UNSCH PRN IV MAGNESIUM LESS THAN 2 01/26/18 19:45 Acetaminophen/ Hydrocodone Bitart ([place] 10-325 Mg) 1 tab Q4H PRN PO PAIN SCALE 1 TO 5 01/26/18 19:45 Acetaminophen/ Hydrocodone Bitart ([place] 10-325 Mg) 2 tab Q4H PRN PO PAIN SCALE 6 TO 10 01/26/18 19:45 01/27/18 07:49 Morphine Sulfate (Morphine Inj) 2 mg Q2H PRN IV PUSH PAIN SCALE 1 TO 6 01/26/18 19:45 Morphine Sulfate (Morphine Inj) 4 mg Q2H PRN IV PUSH PAIN SCALE 7 TO 10 01/26/18 19:45 Acetaminophen (Tylenol) 650 mg Q4H PRN PO TEMPERATURE > 101.5 F 01/26/18 19:45 Cefazolin Sodium/ Dextrose 50 ml @ 100 mls/hr Q8H IV 01/27/18 01:00 01/27/18 17:29 01/27/18 09:14 Miscellaneous Information ([facility] Nursing Information) ALL NURSING DEPARTME... UNSCH PRN .XX SEE LABEL COMMENTS 01/26/18 20:02 01/27/18 20:01 Nicardipine HCl 25 mg/Sodium Chloride 260 ml @ 52 mls/hr TITRATE PRN IV Blood pressure management 01/27/18 01:45 01/27/18 02:15 Amlodipine Besylate (Norvasc) 10 mg DAILY PO 01/27/18 11:00 (Karol Hilario) Medical Decision Making MDM Remarks 62 y/o female s/p right frontal nicole hole evacuation of subdural hematoma (Karol Hilario) Plan Plan Remarks cont neuro checks cont ADALBERTO draining f/u CT Brain tomorrow PT, clear to mobilize out of bed (Karol Hilario) Attending Statement The exam, history, and the medical decision-making described in the above note were completed with the assistance of the mid-level provider. I reviewed and agree with the findings presented. I attest that I had a [id number] encounter with the patient on the same day, and personally performed and documented my assessment and findings in the medical record. (Luis Gomez MD) Karol Hilario Jan 27, 2018 13:43 Luis Gomez MD Jan 29, 2018 19:12
--- NOTE | 2018-01-27 17:40 | EKG ---
Date Performed: 01/26/2018 Time Performed: 13:29:40 PTAGE: 62 years EKG: Sinus rhythm NORMAL ECG NO PREVIOUS TRACING DOCTOR: Ruthy Meyer Interpretating Date/Time 01/27/2018 17:39:42
[2018-01-28] VITALS (13 sets, daily range): BP systolic 134–166; BP diastolic 10–94; PULSE 68–89; RESP 10–14; TEMP 97.7–98.4; O2SAT 95–100
[2018-01-28] MEDS: LABETALOL HCL 100 MG/20 ML VIAL IV PUSH PRN ×6 (01:21→18:17)
[2018-01-28] MEDS: NS + KCL 20 MEQ INJ 1,000 ML IV SCH (02:00)
[2018-01-28] MEDS: CHLORHEXIDINE GLUCONATE 2 % 1 PACK (2 CLOTHS) TOP SCH (03:56)
--- NOTE | 2018-01-28 04:54 | RADRPT ---
EXAM DATE: 01/28/2018 4:46 AM EDT AGE/SEX: 62 years / Female INDICATIONS: Follow up subdural hematoma; post drain placement CLINICAL DATA: This is the patient's subsequent encounter. Patient reports that signs and symptoms h ave been present for 2 days and indicates a pain score of 3/10. MEDICAL/SURGICAL HISTORY: Cardiovascular disease. . Bladder mesh RADIATION DOSE: 56.35 CTDI (mGy) COMPARISON: [facility], [place] BRAIN W/O CONTRAST, 01/26/2018. . TECHNIQUE: CT of the head without contrast. Using automated exposure control and adjustment of the mA and/or kV according to patient size, radiation dose was kept as low as reasonably achievable to ob tain optimal diagnostic quality images. DICOM format image data is available electronically for revi ew and comparison. FINDINGS: There is been interval placement of a right subdural drainage catheter along the right parietal lobe. Right subdural hematoma has decreased mildly in size and remains of low density. Mild midline shift to the left is again noted measuring approximately 0.35 cm. On the prior study this 0.38 cm. There is no new hemorrhage or mass effect. The posterior fossa and brainstem remain unremarkable. CONCLUSION: 1. Interval placement of right subdural drainage catheter with mild interval decrease in the right s ubdural hematoma. 2. Mild interval improvement in midline shift. Electronically signed by: Jair Loomis MD 01/28/2018 4:53 AM EDT
[2018-01-28] MEDS: PANTOPRAZOLE SODIUM 40 MG VIAL IVP SCH (08:57)
[2018-01-28] MEDS: DOCUSATE SODIUM 100 MG CAP PO SCH ×2 (08:57→21:27)
[2018-01-28] MEDS: levETIRAcetam INJ 500 MG in SODIUM CHLORIDE 0.9% INJ 100 ML IV SCH ×2 (08:57→21:27)
[2018-01-28] MEDS: PANTOPRAZOLE SOD 40 MG DELAYED RELEASE TAB PO SCH (08:57)
[2018-01-28] MEDS: SODIUM CHLORIDE 0.9% FLUSH 10 ML FLUSH IV FLUSH SCH ×2 (08:58→21:27)
--- NOTE | 2018-01-28 11:25 | HHI.PR ---
Subjective Remarks Follow-up right subdural hematoma status post drainage January 28, 2018-patient seen and examined, denies any headache or visual change. However reported some headaches overnight. BP elevated. Objective Vitals Vital Signs Date Time Temp Pulse Resp B/P (MAP) Pulse Ox O2 Delivery O2 Flow Rate FiO2 01/28/18 08:00 97.9 72 13 166/94 (118) 96 01/28/18 07:15 Room Air 01/28/18 04:00 98.4 75 14 166/71 (102) 96 01/28/18 00:00 98.1 71 14 163/70 (101) 96 01/27/18 21:51 18 01/27/18 20:00 98.1 74 15 145/64 (91) 97 01/27/18 19:15 Room Air 01/27/18 18:00 68 01/27/18 16:00 98.3 77 18 120/58 (78) 96 01/27/18 16:00 70 01/27/18 14:00 68 01/27/18 12:00 73 01/27/18 12:00 98.0 73 17 123/58 (79) 95 I/O 01/27/18 01/27/18 01/27/18 01/28/18 01/28/18 01/28/18 07:00 15:00 23:00 07:00 15:00 23:00 Intake Total 1450 ml 640 ml Output Total 820 ml 820 ml 1410 ml Balance 630 ml -180 ml -1410 ml Intake Oral 400 ml 640 ml IV Total 1050 ml Output Urine Total 800 ml 800 ml 1400 ml Drainage Total 20 ml 20 ml 10 ml # Bowel Movements 0 0 Result Diagram: 01/27/18 0441 01/27/18 0441 Imaging Last Impressions Head CT 01/28/18 0600 Signed Impressions: CONCLUSION: 1. Interval placement of right subdural drainage catheter with mild interval d ecrease in the right subdural hematoma. 2. Mild interval improvement in midline shift. Objective Remarks GENERAL: NAD SKIN: Warm and dry. HEAD: Normocephalic. Dressing over head; ADALBERTO drain in place EYES: No scleral icterus. No injection or drainage. NECK: Supple, trachea midline. No JVD or lymphadenopathy. CARDIOVASCULAR: Regular rate and rhythm without murmurs, gallops, or rubs. RESPIRATORY: Breath sounds equal bilaterally. No accessory muscle use. GASTROINTESTINAL: Abdomen soft, non-tender, nondistended. MUSCULOSKELETAL: No cyanosis, or edema. BACK: Nontender without obvious deformity. No CVA tenderness. A/P Problem List: (1) Subdural hematoma ICD Code: S06.5X9A - Traumatic subdural hemorrhage with loss of consciousness of unspecified duration, initial encounter Assessment and Plan 62-year-old female with Right-sided subdural hematoma with [id number] midline shift Status post bur hole with evacuation of subdural hematoma on 01/26 Management per neurosurgery Continue with Keppra for seizure prophylaxis Pain management accordingly Hypertension Labile blood pressure Start hydralazine 25 mg every 8 hours and continue with Norvasc 10 mg daily Labetalol as needed GI prophylaxis with Protonix DVT prophylaxis with SCDs Oscar Napier MD Jan 28, 2018 11:25
[2018-01-28] MEDS: hydrALAZINE HCL 25 MG TAB PO SCH ×2 (12:53→21:27)
--- NOTE | 2018-01-28 13:51 | HHI.NSPN ---
(Karol Hilario) Note Status Status: Progress Note (Karol Hilario) Interval History Interval History Ms. Valenzuela is a 62 year old female who complains of headaches that was worsening over the last 5 weeks. She initially presented to [facility] yesterday 01/25/2018 due to intractable headaches. CT brain was obtained which showed a right subdural hematoma and she was transferred to [facility] for neurosurgical evaluation. The patient denies any history of trauma, falling, head injury or whiplash type injuries. She denies focal weakness, seizures, vision changes, paresthesias, nausea or vomiting. Repeat CT Brain here at [place] shows a right-sided subdural hygroma with mass effect on the brain parenchyma and shift from right to left. No active hemorrhage is seen. Neurosurgical evaluation was requested. s/p right frontal nicole hole for evacuation of subdural hematoma 01/26/18 6: POD 1 mild nausea, mild surgical pain, otherwise feels well. denies new neurological complaints. 01/28: POD 2 reports of improved headaches, no other new neurological complaints. Follow-up CT brain completed with improvement of right subdural hematoma and midline shift, there is still mild residual right subdural hematoma. (Karol Hilario) Labs, Micro, & Vital Signs Results Date Time Temp Pulse Resp B/P (MAP) Pulse Ox O2 Delivery O2 Flow Rate FiO2 01/28/18 08:00 97.9 72 13 166/94 (118) 96 01/28/18 07:15 Room Air 01/28/18 04:00 98.4 75 14 166/71 (102) 96 01/28/18 00:00 98.1 71 14 163/70 (101) 96 01/27/18 21:51 18 01/27/18 20:00 98.1 74 15 145/64 (91) 97 01/27/18 19:15 Room Air 01/27/18 18:00 68 01/27/18 16:00 98.3 77 18 120/58 (78) 96 01/27/18 16:00 70 01/27/18 14:00 68 Constitutional Vital Signs Date Time Temp Pulse Resp B/P (MAP) Pulse Ox O2 Delivery O2 Flow Rate FiO2 01/28/18 08:00 97.9 72 13 166/94 (118) 96 01/28/18 07:15 Room Air 01/28/18 04:00 98.4 75 14 166/71 (102) 96 01/28/18 00:00 98.1 71 14 163/70 (101) 96 01/27/18 21:51 18 01/27/18 20:00 98.1 74 15 145/64 (91) 97 01/27/18 19:15 Room Air 01/27/18 18:00 68 01/27/18 16:00 98.3 77 18 120/58 (78) 96 01/27/18 16:00 70 01/27/18 14:00 68 (Karol Hilario) Review of Systems Constitutional: DENIES: Fever Cardiovascular: DENIES: Chest pain Neurologic: COMPLAINS OF: Headache, DENIES: Localized weakness (Improve), Seizures, Speech Problems (Karol Hilario) Physical Exam Ms. Valenzuela is alert, awake and oriented to time, place and person. Speech is fluent. Right frontal wound clean and dry, with ADALBERTO drainage catheter in place. Cranial nerve examination: pupils equal, round and reactive to light. Extra- ocular movements are intact. Facial motor are normal and symmetrical. Neck is soft and supple Muscle strength is normal in all muscle groups of both upper and lower extremities. Cerebellar examination is unremarkable, without deficits. (Karol Hilario) Medications Current Medications Current Medications Medications (Trade) Dose Ordered Sig/Bianka Route PRN Reason Start Time Stop Time Status Last Admin Dose Admin Sodium Chloride (NS Flush) 2 ml UNSCH PRN IV FLUSH FLUSH AFTER USING IV ACCESS 01/26/18 01:45 Sodium Chloride (NS Flush) 2 ml BID IV FLUSH 01/26/18 09:00 01/28/18 08:58 Ondansetron HCl (Zofran Odt) 4 mg Q6H PRN PO NAUSEA OR VOMITING 01/26/18 02:00 Albuterol/ Ipratropium (Duoneb Neb) 1 ampule Q2HR NEB PRN INH WHEEZING 01/26/18 01:45 Miscellaneous Information (Misc Nursing Information) 1 Q361D XX 01/26/18 01:45 Chlorhexidine Gluconate (Chlorhexidine 2% Cloth) 3 pack Taper DAILY@04 TOP 01/26/18 04:00 01/22/19 03:59 01/28/18 03:56 Chlorhexidine Gluconate (Chlorhexidine 2% Cloth) 3 pack UNSCH PRN TOP HYGIENIC CARE 01/26/18 01:45 Magnesium Hydroxide (Milk Of Magnesia Liq) 30 ml Q12H PRN PO Mild constipation 01/26/18 01:45 Sennosides (Senokot) 17.2 mg Q12H PRN PO Moderate constipation 01/26/18 01:45 Lactulose (Lactulose Liq) 30 ml DAILY PRN PO SEVERE CONSITIPATION 01/26/18 01:45 Levetriacetam 500 mg/Sodium Chloride 105 ml @ 420 mls/hr Q12HR IV 01/26/18 09:00 01/28/18 08:57 Labetalol HCl (Trandate Inj) 10 mg Q4H PRN IV PUSH SBP greater than 140mm Hg 01/26/18 01:45 01/28/18 12:44 Potassium Chloride/Sodium Chloride 1,000 ml @ 40 mls/hr Q24H IV 01/26/18 20:00 01/28/18 02:00 Bisacodyl (Dulcolax Supp) 10 mg DAILY PRN RECTAL CONSTIPATION 01/26/18 19:45 Docusate Sodium (Colace) 100 mg BID PO 01/26/18 21:00 01/28/18 08:57 Pantoprazole Sodium (Protonix) 40 mg DAILY PO 01/27/18 09:00 01/28/18 08:57 Ondansetron HCl (Zofran Inj) 4 mg Q6H PRN IV PUSH NAUSEA OR VOMITING 01/26/18 19:45 01/27/18 09:13 Calcium Gluconate (Calcium Gluconate Inj) 1 gm UNSCH PRN IV SEE LABEL COMMENTS 01/26/18 19:45 Potassium Chloride 100 ml @ 50 mls/hr UNSCH PRN IV POTASSIUM LESS THAN 4 01/26/18 19:45 Magnesium Sulfate 4 gm/Sodium Chloride 108 ml @ 108 mls/hr UNSCH PRN IV MAGNESIUM LESS THAN 2 01/26/18 19:45 Acetaminophen/ Hydrocodone Bitart ([place] 10-325 Mg) 1 tab Q4H PRN PO PAIN SCALE 1 TO 5 01/26/18 19:45 Acetaminophen/ Hydrocodone Bitart ([place] 10-325 Mg) 2 tab Q4H PRN PO PAIN SCALE 6 TO 10 01/26/18 19:45 01/27/18 20:50 Morphine Sulfate (Morphine Inj) 2 mg Q2H PRN IV PUSH PAIN SCALE 1 TO 6 01/26/18 19:45 Morphine Sulfate (Morphine Inj) 4 mg Q2H PRN IV PUSH PAIN SCALE 7 TO 10 01/26/18 19:45 Acetaminophen (Tylenol) 650 mg Q4H PRN PO TEMPERATURE > 101.5 F 01/26/18 19:45 Nicardipine HCl 25 mg/Sodium Chloride 260 ml @ 52 mls/hr TITRATE PRN IV Blood pressure management 01/27/18 01:45 01/27/18 02:15 Amlodipine Besylate (Norvasc) 10 mg DAILY PO 01/27/18 11:00 01/28/18 08:57 Hydralazine HCl (Apresoline) 25 mg Q8H PO 01/28/18 13:00 01/28/18 12:53 (Karol Hilario) Medical Decision Making MDM Remarks 62 y/o female s/p right frontal nicole hole evacuation of subdural hematoma (Karol Hilario) Plan Plan Remarks Follow-up CT brain reviewed by Dr. Gomez Continue ADALBERTO draining today, keep patient's head slightly flat to the right, Anticipate removal of drain tomorrow Continue neuro checks Mobilize out of bed, physical therapy (Karol Hilario) Attending Statement The exam, history, and the medical decision-making described in the above note were completed with the assistance of the mid-level provider. I reviewed and agree with the findings presented. I attest that I had a [id number] encounter with the patient on the same day, and personally performed and documented my assessment and findings in the medical record. (Luis Gomez MD) Karol Hilario Jan 28, 2018 13:51 Luis Gomez MD Jan 29, 2018 19:32
[2018-01-28] MEDS: ACETAMINOPHEN/HYDROcodone 325 MG/10 MG TAB PO PRN ×2 (17:23→21:28)
[2018-01-29] VITALS (13 sets, daily range): BP systolic 134–163; BP diastolic 63–86; PULSE 57–78; RESP 11–18; TEMP 97.4–98.3; O2SAT 97–99
[2018-01-29] MEDS: CHLORHEXIDINE GLUCONATE 2 % 1 PACK (2 CLOTHS) TOP SCH (02:42)
[2018-01-29] MEDS: hydrALAZINE HCL 25 MG TAB PO SCH ×3 (04:23→22:59)
[2018-01-29] MEDS: ONDANSETRON HCL 4 MG/2 ML VIAL IV PUSH PRN ×2 (04:23→11:18)
[2018-01-29] MEDS: LABETALOL HCL 100 MG/20 ML VIAL IV PUSH PRN ×2 (06:14→11:11)
[2018-01-29] MEDS: PANTOPRAZOLE SOD 40 MG DELAYED RELEASE TAB PO SCH (09:00)
[2018-01-29] MEDS: levETIRAcetam INJ 500 MG in SODIUM CHLORIDE 0.9% INJ 100 ML IV SCH ×2 (09:00→22:59)
[2018-01-29] MEDS: SODIUM CHLORIDE 0.9% FLUSH 10 ML FLUSH IV FLUSH SCH ×2 (09:00→22:59)
[2018-01-29] MEDS: DOCUSATE SODIUM 100 MG CAP PO SCH ×2 (09:00→22:59)
--- NOTE | 2018-01-29 11:12 | HHI.NSPN ---
(Karol Hilario) Note Status Status: Progress Note (Karol Hilario) Interval History Interval History Ms. Valenzuela is a 62 year old female who complains of headaches that was worsening over the last 5 weeks. She initially presented to [facility] yesterday 01/25/2018 due to intractable headaches. CT brain was obtained which showed a right subdural hematoma and she was transferred to [facility] for neurosurgical evaluation. The patient denies any history of trauma, falling, head injury or whiplash type injuries. She denies focal weakness, seizures, vision changes, paresthesias, nausea or vomiting. Repeat CT Brain here at [place] shows a right-sided subdural hygroma with mass effect on the brain parenchyma and shift from right to left. No active hemorrhage is seen. Neurosurgical evaluation was requested. s/p right frontal nicole hole for evacuation of subdural hematoma 01/26/18 6: POD 1 mild nausea, mild surgical pain, otherwise feels well. denies new neurological complaints. 01/28: POD 2 reports of improved headaches, no other new neurological complaints. Follow-up CT brain completed with improvement of right subdural hematoma and midline shift, there is still mild residual right subdural hematoma. 01/29: POD 3, headaches improved, no new neuro complaints. (Karol Hilario) Labs, Micro, & Vital Signs Results Date Time Temp Pulse Resp B/P (MAP) Pulse Ox O2 Delivery O2 Flow Rate FiO2 01/29/18 10:00 74 01/29/18 08:00 62 01/29/18 08:00 97.8 62 16 158/72 (100) 98 01/29/18 07:00 99 Room Air 01/29/18 06:00 61 01/29/18 04:00 97.9 58 14 148/68 (94) 97 01/29/18 04:00 57 01/29/18 02:00 64 01/29/18 00:00 68 01/29/18 00:00 98.3 65 14 134/63 (86) 98 01/28/18 22:00 89 01/28/18 20:09 98 01/28/18 20:00 Room Air 01/28/18 20:00 97.7 76 14 143/87 (105) 100 01/28/18 20:00 72 01/28/18 17:00 98.0 71 10 154/10 (58) 97 01/28/18 16:00 98.2 70 10 134/67 (89) 95 01/28/18 15:00 98.0 76 14 143/67 (92) 97 01/28/18 14:00 97.9 72 14 136/67 (90) 97 01/28/18 13:00 98.1 72 12 158/18 (64) 98 01/28/18 12:00 98.0 68 14 166/74 (104) 96 Constitutional Vital Signs Date Time Temp Pulse Resp B/P (MAP) Pulse Ox O2 Delivery O2 Flow Rate FiO2 01/29/18 10:00 74 01/29/18 08:00 62 01/29/18 08:00 97.8 62 16 158/72 (100) 98 01/29/18 07:00 99 Room Air 01/29/18 06:00 61 01/29/18 04:00 97.9 58 14 148/68 (94) 97 01/29/18 04:00 57 01/29/18 02:00 64 01/29/18 00:00 68 01/29/18 00:00 98.3 65 14 134/63 (86) 98 01/28/18 22:00 89 01/28/18 20:09 98 01/28/18 20:00 Room Air 01/28/18 20:00 97.7 76 14 143/87 (105) 100 01/28/18 20:00 72 01/28/18 17:00 98.0 71 10 154/10 (58) 97 01/28/18 16:00 98.2 70 10 134/67 (89) 95 01/28/18 15:00 98.0 76 14 143/67 (92) 97 01/28/18 14:00 97.9 72 14 136/67 (90) 97 01/28/18 13:00 98.1 72 12 158/18 (64) 98 01/28/18 12:00 98.0 68 14 166/74 (104) 96 (Karol Hilario) Physical Exam Ms. Valenzuela is alert, awake and oriented to time, place and person. Speech is fluent. Right frontal wound clean and dry and healing well, with ADALBERTO drainage catheter in place with minimal downing CSF drainage. Cranial nerve examination: pupils equal, round and reactive to light. Extra- ocular movements are intact. Facial motor are normal and symmetrical. Neck is soft and supple Muscle strength is normal in all muscle groups of both upper and lower extremities. Cerebellar examination is unremarkable, without deficits. (Karol Hilario) Medications Current Medications Current Medications Medications (Trade) Dose Ordered Sig/Bianka Route PRN Reason Start Time Stop Time Status Last Admin Dose Admin Sodium Chloride (NS Flush) 2 ml UNSCH PRN IV FLUSH FLUSH AFTER USING IV ACCESS 01/26/18 01:45 Sodium Chloride (NS Flush) 2 ml BID IV FLUSH 01/26/18 09:00 01/29/18 09:00 Ondansetron HCl (Zofran Odt) 4 mg Q6H PRN PO NAUSEA OR VOMITING 01/26/18 02:00 Albuterol/ Ipratropium (Duoneb Neb) 1 ampule Q2HR NEB PRN INH WHEEZING 01/26/18 01:45 Miscellaneous Information ([facility] Nursing Information) 1 Q361D XX 01/26/18 01:45 Chlorhexidine Gluconate (Chlorhexidine 2% Cloth) 3 pack Taper DAILY@04 TOP 01/26/18 04:00 01/22/19 03:59 01/28/18 03:56 Chlorhexidine Gluconate (Chlorhexidine 2% Cloth) 3 pack UNSCH PRN TOP HYGIENIC CARE 01/26/18 01:45 Magnesium Hydroxide (Milk Of Magnesia Liq) 30 ml Q12H PRN PO Mild constipation 01/26/18 01:45 Sennosides (Senokot) 17.2 mg Q12H PRN PO Moderate constipation 01/26/18 01:45 Lactulose (Lactulose Liq) 30 ml DAILY PRN PO SEVERE CONSITIPATION 01/26/18 01:45 Levetriacetam 500 mg/Sodium Chloride 105 ml @ 420 mls/hr Q12HR IV 01/26/18 09:00 01/29/18 09:00 Labetalol HCl (Trandate Inj) 10 mg Q4H PRN IV PUSH SBP greater than 140mm Hg 01/26/18 01:45 01/29/18 06:14 Bisacodyl (Dulcolax Supp) 10 mg DAILY PRN RECTAL CONSTIPATION 01/26/18 19:45 Docusate Sodium (Colace) 100 mg BID PO 01/26/18 21:00 01/29/18 09:00 Pantoprazole Sodium (Protonix) 40 mg DAILY PO 01/27/18 09:00 01/29/18 09:00 Ondansetron HCl (Zofran Inj) 4 mg Q6H PRN IV PUSH NAUSEA OR VOMITING 01/26/18 19:45 01/29/18 04:23 Calcium Gluconate (Calcium Gluconate Inj) 1 gm UNSCH PRN IV SEE LABEL COMMENTS 01/26/18 19:45 Potassium Chloride 100 ml @ 50 mls/hr UNSCH PRN IV POTASSIUM LESS THAN 4 01/26/18 19:45 Magnesium Sulfate 4 gm/Sodium Chloride 108 ml @ 108 mls/hr UNSCH PRN IV MAGNESIUM LESS THAN 2 01/26/18 19:45 Acetaminophen/ Hydrocodone Bitart ([place] 10-325 Mg) 1 tab Q4H PRN PO PAIN SCALE 1 TO 5 01/26/18 19:45 Acetaminophen/ Hydrocodone Bitart ([place] 10-325 Mg) 2 tab Q4H PRN PO PAIN SCALE 6 TO 10 01/26/18 19:45 01/28/18 21:28 Morphine Sulfate (Morphine Inj) 2 mg Q2H PRN IV PUSH PAIN SCALE 1 TO 6 01/26/18 19:45 Morphine Sulfate (Morphine Inj) 4 mg Q2H PRN IV PUSH PAIN SCALE 7 TO 10 01/26/18 19:45 Acetaminophen (Tylenol) 650 mg Q4H PRN PO TEMPERATURE > 101.5 F 01/26/18 19:45 Nicardipine HCl 25 mg/Sodium Chloride 260 ml @ 52 mls/hr TITRATE PRN IV Blood pressure management 01/27/18 01:45 01/27/18 02:15 Amlodipine Besylate (Norvasc) 10 mg DAILY PO 01/27/18 11:00 01/29/18 09:00 Hydralazine HCl (Apresoline) 25 mg Q8H PO 01/28/18 13:00 01/29/18 04:23 (Karol Hilario) Medical Decision Making MDM Remarks 62 y/o female s/p right frontal nicole hole evacuation of subdural hematoma , improved headaches, stable neuro exam (Karol Hilario) Plan Plan Remarks ADALBERTO drain dc'ed, single stitch placed on drain site using sterile technique, cont current care, mobilize OOB clear discharge tomorrow if remains stable dc juliet 10-14 days post-op (Karol Hilario) Attending Statement The exam, history, and the medical decision-making described in the above note were completed with the assistance of the mid-level provider. I reviewed and agree with the findings presented. I attest that I had a [id number] encounter with the patient on the same day, and personally performed and documented my assessment and findings in the medical record. (Luis Gomez MD) Karol Hilario Jan 29, 2018 11:12 Luis Gomez MD Jan 29, 2018 19:36
--- NOTE | 2018-01-29 11:24 | HHI.PR ---
Subjective Remarks Follow-up right subdural hematoma status post drainage January 28, 2018-patient seen and examined, denies any headache or visual change. However reported some headaches overnight. BP elevated. January 29, 2018-patient seen and examined, she denies any more headaches. Stable and tolerating p.o. without any complication nausea and vomiting Objective Vitals Vital Signs Date Time Temp Pulse Resp B/P (MAP) Pulse Ox O2 Delivery O2 Flow Rate FiO2 01/29/18 10:00 74 01/29/18 08:00 62 01/29/18 08:00 97.8 62 16 158/72 (100) 98 01/29/18 07:00 99 Room Air 01/29/18 06:00 61 01/29/18 04:00 97.9 58 14 148/68 (94) 97 01/29/18 04:00 57 01/29/18 02:00 64 01/29/18 00:00 68 01/29/18 00:00 98.3 65 14 134/63 (86) 98 01/28/18 22:00 89 01/28/18 20:09 98 01/28/18 20:00 Room Air 01/28/18 20:00 97.7 76 14 143/87 (105) 100 01/28/18 20:00 72 01/28/18 17:00 98.0 71 10 154/10 (58) 97 01/28/18 16:00 98.2 70 10 134/67 (89) 95 01/28/18 15:00 98.0 76 14 143/67 (92) 97 01/28/18 14:00 97.9 72 14 136/67 (90) 97 01/28/18 13:00 98.1 72 12 158/18 (64) 98 01/28/18 12:00 98.0 68 14 166/74 (104) 96 I/O 01/28/18 01/28/18 01/28/18 01/29/18 01/29/18 01/29/18 07:00 15:00 23:00 07:00 15:00 23:00 Intake Total 685 ml 480 ml Output Total 1410 ml 1 ml 0 ml Balance -1410 ml 684 ml 480 ml Intake Oral 580 ml 480 ml IV Total 105 ml Output Urine Total 1400 ml Drainage Total 10 ml 1 ml 0 ml # Voids 5 2 # Bowel Movements 0 1 0 Result Diagram: 01/27/18 0441 01/27/18 0441 Imaging Last Impressions Head CT 01/28/18 0600 Signed Impressions: CONCLUSION: 1. Interval placement of right subdural drainage catheter with mild interval d ecrease in the right subdural hematoma. 2. Mild interval improvement in midline shift. Objective Remarks GENERAL: NAD SKIN: Warm and dry. HEAD: Normocephalic. Dressing over head; ADALBERTO drain in place EYES: No scleral icterus. No injection or drainage. NECK: Supple, trachea midline. No JVD or lymphadenopathy. CARDIOVASCULAR: Regular rate and rhythm without murmurs, gallops, or rubs. RESPIRATORY: Breath sounds equal bilaterally. No accessory muscle use. GASTROINTESTINAL: Abdomen soft, non-tender, nondistended. MUSCULOSKELETAL: No cyanosis, or edema. BACK: Nontender without obvious deformity. No CVA tenderness. Procedures Status post right frontal nicole hole, evacuation of subdural hematoma A/P Problem List: (1) Subdural hematoma ICD Code: S06.5X9A - Traumatic subdural hemorrhage with loss of consciousness of unspecified duration, initial encounter Assessment and Plan 62-year-old female with Right-sided subdural hematoma with [id number] midline shift Status post bur hole with evacuation of subdural hematoma on 01/26 ADALBERTO drain to be removed today January 29, 2018 Management per neurosurgery Continue with [facility] for seizure prophylaxis Pain management accordingly dc juliet 10-14 days post-op Hypertension Continue hydralazine 25 mg every 8 hours and Norvasc 10 mg daily Labetalol as needed GI prophylaxis with Protonix DVT prophylaxis with SCDs Discharge Planning Discharge home January 30, 2018 Oscar Napier MD Jan 29, 2018 11:24
[2018-01-30] VITALS: BP 152/64; PULSE 72; PULSE 75; RESP 18; TEMP 97.9; O2SAT 97
[2018-01-30 04:00] VITALS: BP 167/77; PULSE 72; RESP 18; TEMP 97.6; O2SAT 97
[2018-01-30] MEDS: CHLORHEXIDINE GLUCONATE 2 % 1 PACK (2 CLOTHS) TOP SCH (04:00)
[2018-01-30] MEDS: hydrALAZINE HCL 25 MG TAB PO SCH ×2 (05:16→12:17)
[2018-01-30 08:03] VITALS: PULSE 67
[2018-01-30 08:52] VITALS: BP 151/65; PULSE 69; RESP 18; TEMP 98.1; O2SAT 98
--- NOTE | 2018-01-30 09:45 | HHI.PR ---
Subjective Remarks doing very well no headaches, nausea or vomiting actually liked our food no pain not requiring any pain meds Objective Vitals Vital Signs Date Time Temp Pulse Resp B/P (MAP) Pulse Ox O2 Delivery O2 Flow Rate FiO2 01/30/18 08:52 98.1 69 18 151/65 (93) 98 01/30/18 08:20 Room Air 01/30/18 04:00 97.6 72 18 167/77 (107) 97 01/30/18 00:00 97.9 72 18 152/64 (93) 97 01/30/18 00:00 75 01/29/18 21:01 75 01/29/18 21:01 100 Room Air 01/29/18 20:56 97.4 78 18 138/66 (90) 97 01/29/18 20:49 21 01/29/18 16:46 149/69 (95) 01/29/18 16:28 97.5 72 18 163/72 (102) 97 01/29/18 16:02 98 01/29/18 16:00 97.9 68 13 154/83 (106) 99 01/29/18 16:00 68 01/29/18 12:00 97.9 66 11 161/86 (111) 99 01/29/18 12:00 66 01/29/18 10:00 74 I/O 01/29/18 01/29/18 01/29/18 01/30/18 01/30/18 01/30/18 07:00 15:00 23:00 07:00 15:00 23:00 Intake Total 480 ml 105 ml Output Total 0 ml Balance 480 ml 105 ml Intake Oral 480 ml IV Total 105 ml Drainage Total 0 ml # Voids 2 1 4 # Bowel Movements 0 Result Diagram: 01/27/18 0441 01/27/18 0441 Imaging Last Impressions Head CT 01/28/18 0600 Signed Impressions: CONCLUSION: 1. Interval placement of right subdural drainage catheter with mild interval d ecrease in the right subdural hematoma. 2. Mild interval improvement in midline shift. Objective Remarks head- juliet in place awake and alert, oriented x 3, speech clear anicteric pupils equal no facial asymmetry tongue mideline no nuchal rigidity lungs- clear regular rhythma bdmen soft, good bowel sounds extremities no edema neuro exam- non focal Procedures Right frontal nicole hole, evacuation of subdural hematoma A/P Problem List: (1) Subdural hematoma ICD Code: S06.5X9A - Traumatic subdural hemorrhage with loss of consciousness of unspecified duration, initial encounter Status: Acute Assessment and Plan 62-year-old female with Right-sided subdural hematoma with [id number] midline shift Status post bur hole with evacuation of subdural hematoma on 01/26 ADALBERTO drain removed January 29, 2018 change to Keppra 500 mg po bid- d/w Ms Hilario- give x 1 week for SZ prophylaxis dc juliet 10-14 days post-op- OP ff up Hypertension Continue hydralazine 25 mg every 8 hours and Norvasc 10 mg daily Labetalol as needed GI prophylaxis with Protonix DVT prophylaxis with SCDs Discharge Planning Discharge home January 30, 2018 today with home health care- arrange for home PT Claudia Cardozo MD Jan 30, 2018 09:45
[2018-01-30] MEDS ORDERED: AMLO10 PO (09:53)
[2018-01-30] MEDS ORDERED: HYDR-3799 PO (09:53)
[2018-01-30] MEDS ORDERED: LEVE500 PO (09:53)
--- NOTE | 2018-01-30 09:56 | HHI.FF ---
Face to Face Verification Diagnosis: (1) S/P SDH evacuation (2) HTN (hypertension) Home Health Nursing Order: Medical education Signs/symptoms of disease process Wound care and dressing changes Nursing assessment with vital signs Instructions: juliet in place- remove in 10-14 days - date of surgery 01/26 [employer] Order: To Evaluate: Living conditions/environment, Support services I have seen patient Farheen Valenzuela on 01/30/18. My clinical findings support the need for the requested home health care services because: Need for psychosocial assistance High risk of falls I certify that my clinical findings support that this patient is homebound because: Claudia Cardozo MD Jan 30, 2018 09:56
--- NOTE | 2018-01-30 09:58 | HHI.DS ---
Discharge Summary Admission Date Jan 26, 2018 at 01:04 Discharge Date: Jan 30, 2018 Admitting Diagnosis (1) Subdural hematoma ICD Code: S06.5X9A - Traumatic subdural hemorrhage with loss of consciousness of unspecified duration, initial encounter Diagnosis: Principal Status: Acute (2) HTN (hypertension) ICD Code: I10 - Essential (primary) hypertension Diagnosis: Secondary Status: Acute Procedures Right frontal nicole hole, evacuation of subdural hematoma Brief History - From Admission 62-year-old female who presented to [facility] on 01/25/2018 with headache going on for 5 weeks. She describes the headache as stabbing in character initially started on the right side however subsequently became generalized and was constant. She denies any history of falls or head trauma recently. She denies being on any blood thinners at home. She recently underwent a breast biopsy about 2 weeks prior to her headache starting. She also has a history of bladder prolapse, mitral valve issues and tremors and has been diagnosed with cervical degenerative disc disease. She also has long- standing dizziness/vertigo secondary to Mnire's disease. Patient was transferred to [facility] as her head CT done at [facility] revealed right-sided subdural hematoma which was discussed with the neurosurgeon on-call at [facility] who recommended transferring patient. Patient was accepted for admission at [facility] by Dr. Meyers and received Keppra prior to transfer. I evaluated the patient immediately on being notified of her arrival in the ICU at [facility]. At that time she was resting in bed comfortably not in any acute distress. She rated her headache almost gone at this time. She denied any focal weakness in either extremities. She denied any speech disturbance or visual disturbance. She had a systolic blood pressure in the 170s on arrival and received labetalol 10 mg IV. History was obtained by reviewing records and discussion with patient and nursing staff. CBC/BMP: 01/27/18 0441 01/27/18 0441 Imaging Last Impressions Head CT 01/28/18 0600 Signed Impressions: CONCLUSION: 1. Interval placement of right subdural drainage catheter with mild interval d ecrease in the right subdural hematoma. 2. Mild interval improvement in midline shift. PE at Discharge head- juliet in place awake and alert, oriented x 3, speech clear anicteric pupils equal no facial asymmetry tongue midline no nuchal rigidity lungs- clear regular rhythm abdmen soft, good bowel sounds extremities no edema neuro exam- non focal, gait steady Pt update on day of discharge awake and alert, speech clear, no HE, nausea or weakness interactive did well with physical therapy Hospital Course 62-year-old female with Right-sided subdural hematoma with [id number] midline shift Status post bur hole with evacuation of subdural hematoma on 01/26 ADALBERTO drain removed January 29, 2018 change to Keppra 500 mg po bid- d/w Ms Hill- give x 1 week for SZ prophylaxis dc juliet 10-14 days post-op- OP ff up Hypertension Continue hydralazine 25 mg every 8 hours and Norvasc 10 mg daily Labetalol as needed GI prophylaxis with Protonix DVT prophylaxis with SCDs Discharge Planning Discharge home January 30, 2018 today with home health care- arrange for home PT Pt Condition on Discharge: Stable Discharge Disposition: Disch w/ Home Health Serv Discharge Time: <= 30 minutes Discharge Instructions DIET: Follow Instructions for: Heart Healthy Diet Speech Therapy-Diet Recommends: Regular Activities you can perform: Weight Bearing as Isiah Activities to Avoid: Strenuous Activity Follow up Referrals: Neurosurgery - 1 Week with Luis Gomez MD PCP Follow-up - 02/01/18 with PCP New Medications: Amlodipine (Norvasc) 10 Mg Tab 10 MG PO DAILY for Hyeprtension for 30 Days, #30 TAB Hydralazine HCl (Hydralazine HCl) 25 Mg Tablet 25 MG PO Q8H for HTN for 30 Days, #90 TAB Levetiracetam (Keppra) 500 Mg Tab 500 MG PO Q12HR for s/p SDH evac for 7 Days, #14 TAB Claudia Cardozo MD Jan 30, 2018 09:57
[2018-01-30] MEDS ORDERED: levETIRAcetam 500 MG TAB PO SCH (10:00)
[2018-01-30] MEDS: DOCUSATE SODIUM 100 MG CAP PO SCH (10:04)
[2018-01-30] MEDS: PANTOPRAZOLE SOD 40 MG DELAYED RELEASE TAB PO SCH (10:04)
[2018-01-30] MEDS: SODIUM CHLORIDE 0.9% FLUSH 10 ML FLUSH IV FLUSH SCH (10:05)
[2018-01-30 11:43] VITALS: BP 166/74; PULSE 76; RESP 16; TEMP 97.7; O2SAT 95
== END 2018-01-30 13:43 | disposition home health service (06) | DRG 27 ==
LOC: N03A 01-26 01:04 → N05A 01-29 16:24
PROVIDERS: ADMIT Internal Medicine; ATTEND Internal Medicine
PROC: 00C43ZZ Extirpation of Matter from Intracranial Subdural Space, Percutaneous Approach (ICD-10-PCS; principal; 2018-01-26 18:25)
DX: I62.01 Nontraumatic acute subdural hemorrhage (principal); I10 Essential (primary) hypertension; F32.9 Major depressive disorder, single episode, unspecified; I25.10 Atherosclerotic heart disease of native coronary artery without angina pectoris; R25.1 Tremor, unspecified; N81.10 Cystocele, unspecified; M50.30 Other cervical disc degeneration, unspecified cervical region; R42 Dizziness and giddiness; I34.1 Nonrheumatic mitral (valve) prolapse
CPT/HCPCS: 36415; 70450; 80048; 80053; 83735; 84100; 85025; 85610; 85730; 87641; 88304; 88341; 93005; 94150; C9113; J0131; J0690; J1100; J1580; J1953; J2250; J2270; J2370; J2405; J3010; J3480; J7050; J7120

== ENCOUNTER 2018-01-30 21:32 | Inpatient (IN) | payer OTHER ==
[~2018-01-30] VITALS: Ht 162.6 cm; Wt 87.2 kg
[~2018-01-30 21:32] MED LIST: AMLO10 PO; HYDR-3799 PO; LEVE500 PO
[2018-01-30 23:30] VITALS: BP 125/72; PULSE 77; RESP 18; TEMP 98; O2SAT 95
[2018-01-30] MEDS ORDERED: METOCLOPRAMIDE HCL 10 MG/2 ML VIAL IV PUSH PRN (23:45)
[2018-01-30] MEDS ORDERED: NALOXONE HCL 0.4 MG/ML AMP IV PUSH PRN (23:45)
[2018-01-30] MEDS ORDERED: SODIUM CHLORIDE 0.9% FLUSH 10 ML FLUSH IV FLUSH PRN (23:45)
[2018-01-30] MEDS ORDERED: ONDANSETRON ODT 4 MG TAB PO PRN (23:45)
[2018-01-30] MEDS ORDERED: levETIRAcetam 500 MG TAB PO ONE (23:45)
[2018-01-30] MEDS ORDERED: BISACODYL 10 MG SUPP RECTAL PRN (23:45)
[2018-01-30] MEDS ORDERED: MORPHINE SULFATE 2 MG/ML SYRINGE IV PUSH PRN (23:45)
[2018-01-30] MEDS ORDERED: LACTULOSE SYRUP 20 GM/30 ML CUP PO PRN (23:45)
[2018-01-30] MEDS ORDERED: ACETAMINOPHEN/HYDROcodone 325 MG/5 MG TAB PO PRN (23:45)
[2018-01-30] MEDS ORDERED: ACETAMINOPHEN 325 MG TAB PO PRN (23:45)
[2018-01-30] MEDS ORDERED: ENALAPRILAT 1.25 MG/ML VIAL IV PUSH PRN (23:45)
[2018-01-30] MEDS ORDERED: SENNOSIDES 8.6 MG TAB PO PRN (23:45)
[2018-01-30] MEDS ORDERED: MAGNESIUM HYDROXIDE SUSP 30 ML CUP PO PRN (23:45)
[2018-01-31] VITALS (7 sets, daily range): BP systolic 126–163; BP diastolic 66–77; PULSE 68–106; RESP 14–18; TEMP 97.2–98.7; O2SAT 90–98
--- NOTE | 2018-01-31 00:38 | HHI.HP ---
HPI Service [facility] Hospitalists Primary Care Physician Unknown Admission Diagnosis Diagnoses: Chief Complaint: Left hand paresthesias/weakness Travel History International Travel<30 Days: No Contact w/Intl Traveler <30 Da: No Traveled to Known Affected Are: No History of Present Illness 62-year-old female with history of hypertension and recent admission to [facility] 01/26/18-01/30/18 for subdural hematoma status post nicole hole evacuation, presents with acute onset of left hand paresthesias/weakness. Patient is seen in her inpatient bed, drowsy after receiving IV morphine 5 mg en route, but does awaken briefly to answer some questions, then falls asleep during conversation, therefore history supplemented from EMR. The patient initially presented to [facility] on 01/25 with 5 weeks of persistent headache , diagnosed with subdural hematoma with right to left midline shift. She was transferred to [facility] where she underwent nicole hole evacuation by Dr. Gomez on 01/26. The patient was cleared by neurosurgery and discharged on Norvasc 10mg qd, Hydralazine 25mg q8h, and Keppra 500mg bid x1week for seizure prophylaxis. The patient states she was at home for 2 hours when she all of a sudden developed tingling and numbness of the left hand, left lips and perioral region. She then noticed increasing weakness of the left hand and blurred vision. Denies any slurred speech, aphasia, or dysphagia. Denies any difficulty with ambulation or any weakness of bilateral lower extremities. She also reports her headache became much worse than when she was discharged. She locates the headache throughout the right temporal and parietal area, rated as constant 7/10 sharp pains. The patient presented back to [facility] ED, repeat head CT showed "interval right frontal cranial nicole hole with decrease in the chronic right subdural hematoma; still a small amount of extra- axial low-attenuation fluid; no acute hemorrhage; there is low attenuation change in the white matter most consistent with chronic age-related small vessel ischemic change; no acute infarction". No TPA was given due to recent SDH and surgery. Dr Nation accepted transfer to [facility]. The patient reports she did get some relief of her headache after receiving the IV morphine , however still reporting LUE paresthesias and weakness. She has no other medical complaints at this time including no lightheadedness, fever/chills, cough, chest pain, palpitations, shortness of breath, or abdominal complaints. She is quite drowsy throughout exam due to IV morphine. Discussed with RN. Review of Systems Except as stated in HPI: all other systems reviewed are Neg Past Family Social History Past Medical History hypertension mitral valve prolapse recent SDH 01/26/18 Past Surgical History right frontal nicole hole with evacuation of subdural hematoma on 01/26/[address] Gomez bladder surgery with mesh right ankle surgery Reported Medications Keppra (Levetiracetam) 500 Mg Tab 500 Mg PO Q12HR 7 Days Norvasc (Amlodipine Besylate) 10 Mg Tab 10 Mg PO DAILY 30 Days Hydralazine HCl 25 Mg Tablet 25 Mg PO Q8H 30 Days Allergies: Coded Allergies: adhesive (Verified Allergy, Unknown, 01/26/18) gabapentin (Verified Allergy, Unknown, 01/26/18) primidone (Verified Allergy, Unknown, 01/26/18) Active Ordered Medications Current Medications Medications (Trade) Dose Ordered Sig/Bianka Route Start Time Stop Time Status Last Admin (NS Flush) 2 ml UNSCH PRN IV FLUSH 01/30/18 23:45 (NS Flush) 2 ml BID IV FLUSH 01/31/18 09:00 (Reglan Inj) 5 mg Q6H PRN IV PUSH 01/30/18 23:45 (Tylenol) 650 mg Q6H PRN PO 01/30/18 23:45 ([place] 5-325 Mg) 1 tab Q4H PRN PO 01/30/18 23:45 (Morphine Inj) 2 mg Q4H PRN IV PUSH 01/30/18 23:45 (Narcan Inj) 0.4 mg UNSCH PRN IV PUSH 01/30/18 23:45 (Angélica-Colace) 1 tab BID PO 01/31/18 09:00 (Milk Of Magnesia Liq) 30 ml Q12H PRN PO 01/30/18 23:45 (Senokot) 17.2 mg Q12H PRN PO 01/30/18 23:45 (Dulcolax Supp) 10 mg DAILY PRN RECTAL 01/30/18 23:45 (Lactulose Liq) 30 ml DAILY PRN PO 01/30/18 23:45 (Zofran Odt) 4 mg Q6H PRN PO 01/30/18 23:45 (Vasotec Inj) 1.25 mg Q4H PRN IV PUSH 01/30/18 23:45 (Keppra) 500 mg Q12HR PO 01/31/18 09:00 Family History Denies any significant family history of heart disease, stroke, aneurysms, or cancer Social History Denies any tobacco, alcohol, or illicit drug use Physical Exam Physical Exam GENERAL: Well-nourished, well-developed middle-age female patient in [facility]. Drowsy. SKIN: Warm and dry. No rash. HEAD: Normocephalic. Atraumatic. Right scalp with juliet, CDI, no surrounding erythema or drainage. EYES: Pupils equal and round. No scleral icterus. No injection or drainage. ENT: No nasal bleeding or discharge. Mucous membranes pink and moist. NECK: Supple. Trachea midline. CARDIOVASCULAR: Regular rate and rhythm. No murmur appreciated. RESPIRATORY: No accessory muscle use. Clear to auscultation. Breath sounds equal bilaterally. GASTROINTESTINAL: Abdomen soft, non-tender, nondistended. Normoactive bowel sounds x4. MUSCULOSKELETAL: No obvious deformities. Extremities without clubbing, cyanosis , or edema. NEUROLOGICAL: Awake and alert. 3/5 strength of LUE, 5/5 strength of RUE/RLE/ LLE. Normal speech. Slight left sided tongue deviation without any noticeable facial droop. Bilateral facial, upper and lower extremity sensation to light touch equal and intact. PSYCHIATRIC: Appropriate mood and affect; insight and judgment normal. Laboratory Obtained from [facility]: WBC 7.7 RBC 5.37 Hemoglobin 16.5 Hematocrit 49.7 MCV 92.5 MCH 30.7 MCHC 33.2 RDW 14.0 Platelets 273 PT 11.1 INR 1.0 APTT 33.1 Sodium 140 Potassium 4.7 Chloride 97 Carbon dioxide 26 Anion gap 21 BUN 16 Creatinine 0.88 Creatinine clearance 55.8 GFR 69.44 BUN/creatinine ratio 18.0 Glucose 103 Calcium 10.1 T bili 0.4 AST 22 ALT 20 Alkaline phosphatase 107 Total protein 7.5 Albumin 4.3 Imaging Obtained from [facility]: 01/30 Chest x-ray: no acute process 01/[address]: Interval right frontal cranial nicole hole with decrease in the chronic right subdural hematoma. There is still a small amount of extra-axial low-attenuation fluid, greatest thickness 8 mm overlying the right frontal and parietal lobes with no acute hemorrhage seen. There is low-attenuation change in the white matter most consistent with chronic age-related small vessel ischemic change. No acute territorial infarct is seen. These can be initially occult on head CT. Caprini VTE Risk Assessment Caprini VTE Risk Assessment: Mod/High Risk (score >= 2) VTE Pharm Contraindication: High risk for bleeding Caprini Risk Assessment Model Point Value = 1 Point Value = 2 Point Value = 3 Point Value = 5 Age 41-60 Minor surgery BMI > 25 kg/m2 Swollen legs Varicose veins or History of unexplained or recurrent spontaneous Oral contraceptives or hormone replacement Sepsis (< 1 month) Serious lung disease, including pneumonia (< 1 month) Abnormal pulmonary function Acute myocardial infarction Congestive heart failure (< 1 month) History of inflammatory bowel disease Medical patient at bed rest Age 61-74 Arthroscopic surgery Major open surgery (> 45 min) Laparoscopic surgery (> 45 min) Malignancy Confined to bed (> 72 hours) Immobilizing plaster cast Central venous access Age >= 75 History of VTE Family history of VTE Factor V Leiden Prothrombin [id number] Lupus anticoagulant Anticardiolipin antibodies Elevated serum homocysteine Heparin-induced thrombocytopenia Other congenital or acquired thrombophilia Stroke (< 1 month) Elective arthroplasty Hip, pelvis, or leg fracture Acute spinal cord injury (< 1 month) Prophylaxis Regimen Total Risk Factor Score Risk Level Prophylaxis Regimen 0-1 Low Early ambulation 2 Moderate Order ONE of the following: *Sequential Compression Device (SCD) *Heparin 5000 units SQ BID 3-4 Higher Order ONE of the following medications: *Heparin 5000 units SQ TID *Enoxaparin/Lovenox 40 mg SQ daily (WT < 150 kg, CrCl > 30 mL/min) *Enoxaparin/Lovenox 30 mg SQ daily (WT < 150 kg, CrCl > 10-29 mL/min) *Enoxaparin/Lovenox 30 mg SQ BID (WT < 150 kg, CrCl > 30 mL/min) AND/OR *Sequential Compression Device (SCD) 5 or more Highest Order ONE of the following medications: *Heparin 5000 units SQ TID (Preferred with Epidurals) *Enoxaparin/Lovenox 40 mg SQ daily (WT < 150 kg, CrCl > 30 mL/min) *Enoxaparin/Lovenox 30 mg SQ daily (WT < 150 kg, CrCl > 10-29 mL/min) *Enoxaparin/Lovenox 30 mg SQ BID (WT < 150 kg, CrCl > 30 mL/min) AND *Sequential Compression Device (SCD) Assessment and Plan Problem List: (1) CVA (cerebral vascular accident) ICD Code: I63.9 - Cerebral infarction, unspecified Status: Acute (2) HTN (hypertension) ICD Code: I10 - Essential (primary) hypertension Status: Acute (3) Subdural hematoma ICD Code: S06.5X9A - Traumatic subdural hemorrhage with loss of consciousness of unspecified duration, initial encounter Status: Acute (4) S/P SDH evacuation Status: Acute Assessment and Plan 62-year-old female with history of hypertension and recent admission to [facility] 01/26/18-01/30/18 for subdural hematoma status post nicole hole and evacuation, presents with acute onset of left-sided deficit. Acute TIA/CVA: with recent admission 01/26-01/30 for SDH with right to left shift s/p nicole hole evacuation by Dr. Gomez. Discharged 01/30, Returned to [place] ED 2 hours after discharge for new onset LUE paresthesias/weakness, left perioral paresthesias, and worsening headache. Repeat Head CT done at [facility] reviewed, shows interval right frontal cranial nicole hole with decrease in the chronic right subdural hematoma; still a small amount of extra-axial low- attenuation fluid; no acute hemorrhage; there is low attenuation change in the white matter most consistent with chronic age-related small vessel ischemic change; no acute infarction". -Check Brain MRI/MRA -Check EEG, continue patient's Keppra 500mg bid -Monitor NIHSS, neuro checks -Monitor on telemetry -Check echocardiogram -Check carotid U/S -Consult PT/OT, stroke navigator -Give IVF hydration -Check lipid panel, HgbA1c -Allow permissive hypertension for now, IV Vasotec prn -Consult neurosurgeon Dr. Gomez -Consult neurology Hypertension: no vital signs available at time of admission -asked RN to check and document VS -holding antihypertensives for now until CVA ruled out -will restart Norvasc 10mg and hydralazine 25mg q8h if Brain MRI negative -IV Vasotec prn SBP > 220 Headache: suspect secondary to above -continue tylenol prn, [place] prn, and IV morphine prn breakthrough pain -monitor for improvement DVT Prophylaxis: teds/SCDs; avoid chemoprophylaxis for now with recent SDH until cleared by neurosurgery to start anticoagulation Discussed Condition With Patient, RN Physician Certification 2 Midnight Certification Type: Admission for Inpatient Services Order for Inpatient Services The services are ordered in accordance with Medicare regulations or non- Medicare payer requirements, as applicable. In the case of services not specified as inpatient-only, they are appropriately provided as inpatient services in accordance with the 2-midnight benchmark. Estimated LOS (days): 3 days is the estimated time the patient will need to remain in the hospital, assuming treatment plan goals are met and no additional complications. Post-Hospital Plan: Not yet determined Janneth Upton PA-C Jan 31, 2018 00:38
[2018-01-31] MEDS ORDERED: SODIUM CHLOR 0.9% 1000 ML INJ 1,000 ML IV SCH (02:15)
[2018-01-31 08:21] LABS: AUTOMATED NEUTROPHIL # 4.3 TH/MM3 (1.8-7.7); BASOPHIL # 0.1 TH/MM3 (0-0.2); BASOPHIL % 0.9 % (0.0-2.0); EOSINOPHIL % 0.7 % (0.0-4.0); HEMATOCRIT 43.5 % (35.0-46.0); HEMOGLOBIN 14.7 GM/DL (11.6-15.3); LYMPH % 27.4 % (9.0-44.0); LYMPHOCYTE # 1.8 TH/MM3 (1.0-4.8); MEAN CELL VOLUME 92.2 FL (80.0-100.0); MEAN CORPUSCULAR HEMOGLOBIN 31.3 PG (27.0-34.0); MEAN CORPUSCULAR HGB CONC 33.9 % (32.0-36.0); MEAN PLATELET VOLUME 7.5 FL (7.0-11.0); MONO % 7.2 % (0.0-8.0); MONOCYTE # 0.5 TH/MM3 (0-0.9); NEUT % 63.8 % (16.0-70.0); PLATELET COUNT 292 TH/MM3 (150-450); RED BLOOD COUNT 4.71 MIL/MM3 (4.00-5.30); RED CELL DISTRIBUTION WIDTH 14.1 % (11.6-17.2); WHITE BLOOD COUNT 6.7 TH/MM3 (4.0-11.0)
[2018-01-31 08:30] LABS: PROTHROMBIN TIME - PATIENT 10.6 SEC (9.8-11.6)
[2018-01-31 08:41] LABS: ALBUMIN 3.2 GM/DL (3.4-5.0); ALT (GPT) 24 U/L (10-53); AST (GOT) 16 U/L (15-37); BICARBONATE 25.6 MEQ/L (21.0-32.0); BLOOD UREA NITROGEN 18 MG/DL (7-18); CALCIUM 8.9 MG/DL (8.5-10.1); CHLORIDE 101 MEQ/L (98-107); CHOLESTEROL 181 MG/DL (120-200); CREATININE 0.99 MG/DL (0.50-1.00); GLOMERULAR FILTRATION RATE 56 ML/MIN (>89); GLUCOSE,RANDOM 88 MG/DL (74-106); SODIUM (NA) 136 MEQ/L (136-145); TRIGLYCERIDES 119 MG/DL (42-150)
[2018-01-31 08:43] LABS: CHOLESTEROL/ HDL RATIO 2.45 RATIO; HDL CHOLESTEROL 73.8 MG/DL (40.0-60.0); LDL CHOLESTEROL 83 MG/DL (0-99)
[2018-01-31 08:44] LABS: ALKALINE PHOSPHATASE 103 U/L (45-117); TOTAL BILIRUBIN ADULT 0.4 MG/DL (0.2-1.0); TOTAL PROTEIN 7.3 GM/DL (6.4-8.2)
[2018-01-31] MEDS: SODIUM CHLOR 0.9% 1000 ML INJ 1,000 ML IV SCH ×2 (08:52→22:12)
--- NOTE | 2018-01-31 09:21 | MB ---
cc: Triston Zhou MD DATE: 01/31/2018 HISTORY OF PRESENT ILLNESS: This is a 62-year-old right-handed woman with a history of hypertension, some chronic renal insufficiency, hypothyroidism, does not usually have headaches. She had a headache for about 5 weeks and was admitted to [facility] with right subdural, had a drain placed and the subdural was smaller. She went home yesterday and then for about 10 minutes, she noticed some tingling and numbness in the left corner of her mouth and some heaviness in the left hand and tingling in the left hand that lasted about 10 minutes and went away. She did still have a headache. She was given some morphine. The headache has gone away. No facial droop or slurred speech. PAST MEDICAL HISTORY: Before the subdural, she was not on any blood thinners nor aspirin. REVIEW OF SYSTEMS: Denies any diabetes, hypercholesterolemia, ME, stent, angioplasty, A. Fib, Coumadin, CABG, hepatic or pulmonary disease, lupus, ulcer, cancer, seizure, or stroke. SOCIAL HISTORY: Not a smoker or a drinker, lives with her . FAMILY HISTORY: Negative for cancer. Positive for seizure in a daughter who was a drug addict and negative for a stroke. MEDICATIONS: She was on Keppra at home, Tylenol, Wellbutrin SR 200 mg a day, Premarin, Synthroid, loratadine, Protonix, Percocet, Flexeril, Vicoprofen. Reported medicines here, Keppra, Norvasc, hydralazine before she came in with a Keppra dose being 500 q. 12 hours and is still on the Keppra 500 q. 12 hours and some p.r.n. medication. It looks like she did not get Wellbutrin during the last hospitalization. PHYSICAL EXAMINATION: VITAL SIGNS: Afebrile, 156/76, 73, 18. NECK: There were no carotid bruits. HEART: Regular rhythm. I did not detect a murmur. NEUROLOGIC: Pupils are equal. Visual grion are full extraocular movements intact without nystagmus. Face is symmetric with normal sensation especially the left corner of the mouth. Tongue was midline. There is no drift. She had normal strength in the upper and lower extremities bilaterally. Fast finger movements are symmetric and normal. DTRs are trace in the upper extremity, slightly hyperreflexive about 2-3+ in the lower extremities, slightly hyperreflexive on the left knee jerk compared to the right. Toes are downgoing bilaterally. There is no clonus. Pinprick is intact throughout. Double simultaneous stimuli is intact. She is not ataxic on [id number]. Speech is fluent. She is not aphasic. She is alert and oriented x 3. LABORATORY DATA: CBC is normal. Basic metabolic profile is pending on this admission, was normal in the last admission with normal LFTs. Albumin was 2.8. Coags are normal. CBC is normal. EKG was sinus rhythm last admission. The patient is on tele here now, but not quite hooked up yet. CT 01/28/2018 showed diminished size of the subdural. Head CT 01/30/2018 from [facility] showed a decreased size 8 mm of the subdural. IMPRESSION: Subdural hematoma with some left-sided symptoms. It could have been a small seizure that could be considered versus a stroke. A venous infarct could also be considered. PLAN: We will check an MRI of the brain, MRA [place] and neck, MR venogram of the brain and EEG. Continue her on the Keppra. Monitor her telemetry. I will be following her with you in the hospital. MD MARCY De La Torre/JUAN , 08:55 AM , 09:20 AM
[2018-01-31] MEDS: SODIUM CHLORIDE 0.9% FLUSH 10 ML FLUSH IV FLUSH SCH ×2 (09:37→22:25)
[2018-01-31] MEDS: DOCUSATE SODIUM 50 MG/SENNA 8.6 MG TAB PO SCH ×2 (09:37→22:24)
[2018-01-31] MEDS: levETIRAcetam 500 MG TAB PO SCH ×2 (09:37→22:24)
--- NOTE | 2018-01-31 10:14 | RADRPT ---
EXAM DATE: 01/31/2018 10:07 AM EDT AGE/SEX: 62 years / Female INDICATIONS: Left hand paresthesias/weakness. CLINICAL DATA: This is the patient's initial encounter. Patient reports that signs and symptoms have been present for 2 days and indicates a pain score of 0/10. MEDICAL/SURGICAL HISTORY: Hypertension. Mitral valve prolapse. Bladder prolapse. Subdural tg anaid. . Right ankle surgery. Bladder surgery-mesh. Clau hole evacuation. COMPARISON: No prior exams available for comparison. VELOCITY PARAMETERS: ICA/CCA Ratio: Right 1.0 , Left 1.0 ICA: Right 75 cm/sec, Left 57 cm/sec CCA: Right 76 cm/sec, Left 58 cm/sec ECA: Right 105 cm/sec, Left 73 cm/sec Vertebral: Right 43 cm/sec antegrade, Left 40 cm/sec antegrade FINDINGS: RIGHT CAROTID: There is no evidence for a hemodynamically significant carotid stenosis. Minimal int imal hyperplasia is present with scattered calcific plaque. LEFT CAROTID: There is no evidence for a hemodynamically significant carotid stenosis. Minimal inti mal hyperplasia is present with scattered calcific plaque. Flow is antegrade in both vertebral arteries. There are no ancillary masses or adenopathy. CONCLUSION: Negative examination for a hemodynamically significant carotid stenosis. Charles Daley MD FACR Electronically signed by: Charles Daley MD 01/31/2018 10:13 AM EDT
--- NOTE | 2018-01-31 11:24 | MG ---
cc: Triston Zhou MD EEG #[id number] INDICATION: Left-handed tingling, right subdural status post drain, left mouth tingle. DESCRIPTION: 8 Hz, 60 microvolt posterior symmetric rhythm is seen. Some 6 Hz diffuse slowing is at times noted. I do not see anything over the right temporal head region to indicate seizure. Appears the patient likely falls asleep, but does not reach stage II sleep. Photic stimulation is performed without significant posterior driving. Some diffuse 6 Hz slowing is noted, but it is synchronous and symmetric. IMPRESSION: I do not see any right hemisphere abnormality. Some mild diffuse theta slowing is seen consistent with a mild diffuse encephalopathy, but no focal abnormalities noted. No right temporal abnormality was seen. Triston Zhou MD DJM/TL , 11:12 AM , 11:23 AM
[2018-01-31] MEDS ORDERED: GADODIAMIDE PF 287 MG/ML 5 ML VIAL (for RAD MRI) IVCONTRAST ONE (11:38)
--- NOTE | 2018-01-31 12:18 | RADRPT ---
EXAM DATE: 01/31/2018 11:53 AM EDT AGE/SEX: 62 years / Female INDICATIONS: CVA. Brain sx last week due to bleed, new weakness on left side. CLINICAL DATA: This is the patient's initial encounter. Patient reports that signs and symptoms have been present for 2 days and indicates a pain score of 1/10. MEDICAL/SURGICAL HISTORY: Hypertension. Renal insufficiency. DDD of CSP. Hysterectomy. Sridevi cystectomy. Bladder prolapse, Rt ankle sx, Lt knee sx, Rt breast biopsy, Drain placed and removed fro m brain. COMPARISON: No prior exams available for comparison. TECHNIQUE: Multiplanar, multisequence examination of the brain was performed without and with 20 ml O mniscan (gadodiamide) contrast as a single exam dose. FINDINGS: Right subdural catheter is present with a mixed acute and chronic subdural hematoma measuring up to a bout 7 mm in thickness. Right left midline shift by 3 mm. No recent infarct identified. There is also likely a small amount of subarachnoid hemorrhage over the right convexity. CONCLUSION: 1. Subdural drain with mixed acute and chronic right subdural hematoma measuring up to about 7 mm in thickness with 3 mm of [id number] midline shift. No recent infarct. Electronically signed by: Isra Hoffmann MD 01/31/2018 12:17 PM EDT
--- NOTE | 2018-01-31 12:20 | RADRPT ---
EXAM DATE: 01/31/2018 11:54 AM EDT AGE/SEX: 62 years / Female INDICATIONS: . Head pain, possible clot, prior brain sx due to bleed, new weakness on left side. CLINICAL DATA: This is the patient's initial encounter. Patient reports that signs and symptoms have been present for 1 day and indicates a pain score of 1/10. MEDICAL/SURGICAL HISTORY: Renal insufficiency. Hypertension. DDD of CSP. Hysterectomy. Sridevi cystectomy. Drain placed and removed from brain, Rt ankle sx, Lt knee sx, Rt breast biopsy. COMPARISON: No prior exams available for comparison. TECHNIQUE: MR cerebral venography is performed without and with 20 ml Omniscan (gadodiamide) contras t (single exam dose). Source images, 3D volume MIP, and sliding thin slab MIP reconstructions were r eviewed. FINDINGS: There is excellent visualization of the major intracranial arteries out to the second-order branch ve ssels. There is no evidence for aneurysm, vessel truncation or stenosis, and no evidence for vascula r malformation. CONCLUSION: 1. Negative MRV Brain with and without contrast. Electronically signed by: Isra Hoffmann MD 01/31/2018 12:18 PM EDT
--- NOTE | 2018-01-31 12:54 | RADRPT ---
EXAM DATE: 01/31/2018 11:42 AM EDT AGE/SEX: 62 years / Female INDICATIONS: Cephalgia. Headaches for five week with left sided weakness and prior brain sx done las t week. CLINICAL DATA: This is the patient's initial encounter. Patient reports that signs and symptoms have been present for 1 day and indicates a pain score of 1/10. MEDICAL/SURGICAL HISTORY: Renal insufficiency. DDD of CSP. Hysterectomy. Cholecystectomy. Rt ankle sx, Bladder prolasp, Lt knee sx, Rt Breast biospy. COMPARISON: No prior exams available for comparison. TECHNIQUE: 3D [id number] MRA was performed. Source images, multiplanar STS MIP, and 3D volum e MIP reconstructions were reviewed. FINDINGS: There is excellent visualization of the major intracranial arteries out to the second-order branch ve ssels. There is no evidence for aneurysm, vessel truncation or stenosis, and no evidence for vascula r malformation. CONCLUSION: 1. Negative MRA of the brain Electronically signed by: Charles Daley MD 01/31/2018 12:53 PM EDT
--- NOTE | 2018-01-31 13:03 | HHI.NSPN ---
(Karol Hilario) Note Status Status: Progress Note (Karol Hilario) Interval History Interval History Ms. Valenzuela is a 62 male who underwent a right frontal bur hole for evacuation of subdural hematoma on 01/26/2018. She was discharged yesterday in stable conditions. Yesterday after discharge, she developed numbness tingling to the left side of her mouth and left hand which concerned her and so she returned back to the ED for evaluation. She has been evaluated by neurology, MRI studies are pending. She is getting prepped for an EEG. She reports her symptoms has resolved, currently is feeling better. Denies any seizure-like activities, fevers, chills, vomiting, focal weakness. Neurosurgery called to reevaluate. (Karol Hilario) Labs, Micro, & Vital Signs Results Date Time Temp Pulse Resp B/P (MAP) Pulse Ox O2 Delivery O2 Flow Rate FiO2 01/31/18 06:00 98.3 73 18 156/76 (102) 98 01/30/18 23:30 98.0 77 18 125/72 (89) 95 Constitutional Vital Signs Date Time Temp Pulse Resp B/P (MAP) Pulse Ox O2 Delivery O2 Flow Rate FiO2 01/31/18 06:00 98.3 73 18 156/76 (102) 98 01/30/18 23:30 98.0 77 18 125/72 (89) 95 (Karol Hilario) Review of Systems Constitutional: DENIES: Fever, Chills Cardiovascular: DENIES: Chest pain Neurologic: COMPLAINS OF: Paresthesias, DENIES: Headache, Localized weakness ( Karol Hilario) Physical Exam Ms. Valenzuela is alert, awake and oriented to time, place and person. Speech is fluent. Follows commands well. Surgical wound healing well without signs of infection. Cranial nerve examination demonstrates the pupils to be equal, round, and reactive to light. Extra-ocular movements are intact. Facial motor and sensory function are normal and symmetrical. Other cranial nerves are intact. Neck is soft and supple. Motor: moves all four extremities well with good strength. Sensory examination is intact to light touch in both the upper and lower extremities, symmetrically. Cerebellar examination is intact to gydehw-ut-[id number] test (Karol Hilario) Medications Current Medications Current Medications Medications (Trade) Dose Ordered Sig/Bianka Route PRN Reason Start Time Stop Time Status Last Admin Dose Admin Sodium Chloride (NS Flush) 2 ml UNSCH PRN IV FLUSH FLUSH AFTER USING IV ACCESS 01/30/18 23:45 Sodium Chloride (NS Flush) 2 ml BID IV FLUSH 01/31/18 09:00 01/31/18 09:37 Metoclopramide HCl (Reglan Inj) 5 mg Q6H PRN IV PUSH NAUSEA OR VOMITING 01/30/18 23:45 Acetaminophen (Tylenol) 650 mg Q6H PRN PO headache/fever/pain1-4 01/30/18 23:45 Acetaminophen/ Hydrocodone Bitart ([place] 5-325 Mg) 1 tab Q4H PRN PO PAIN SCALE 5-10 01/30/18 23:45 Morphine Sulfate (Morphine Inj) 2 mg Q4H PRN IV PUSH breakthrough pain 01/30/18 23:45 Naloxone HCl (Narcan Inj) 0.4 mg UNSCH PRN IV PUSH SEE LABEL COMMENTS 01/30/18 23:45 Senna/Docusate Sodium (Angélica-Colace) 1 tab BID PO 01/31/18 09:00 01/31/18 09:37 Magnesium Hydroxide (Milk Of Magnesia Liq) 30 ml Q12H PRN PO Mild constipation 01/30/18 23:45 Sennosides (Senokot) 17.2 mg Q12H PRN PO Moderate constipation 01/30/18 23:45 Bisacodyl (Dulcolax Supp) 10 mg DAILY PRN RECTAL SEVERE CONSITIPATION 01/30/18 23:45 Lactulose (Lactulose Liq) 30 ml DAILY PRN PO SEVERE CONSITIPATION 01/30/18 23:45 Ondansetron HCl (Zofran Odt) 4 mg Q6H PRN PO nausea 01/30/18 23:45 Enalaprilat (Vasotec Inj) 1.25 mg Q4H PRN IV PUSH For SBP > 220 or DBP > 120 01/30/18 23:45 Levetriacetam (Keppra) 500 mg Q12HR PO 01/31/18 09:00 01/31/18 09:37 Sodium Chloride 1,000 ml @ 75 mls/hr [id number] IV 01/31/18 08:52 01/31/18 08:52 (Karol Hilario) Medical Decision Making MDM Remarks 62-year-old female who underwent a right frontal nicole hole for evacuation of subdural hematoma 01/26/2018 (Karol Hilario) Plan Plan Remarks Follow-up MRI studies an EEG Continue Keppra Neuro checks Neurology following Discussed with patient and in room (Karol Hilario) Attending Statement The exam, history, and the medical decision-making described in the above note were completed with the assistance of the mid-level provider. I reviewed and agree with the findings presented. I attest that I had a jiht-ge-ieae encounter with the patient on the same day, and personally performed and documented my assessment and findings in the medical record. (Luis Gomez MD) Karol Hilario Jan 31, 2018 13:03 Luis Gomez MD Feb 01, 2018 18:14
[2018-01-31 13:47] LABS: FREE T4 1.05 NG/DL (0.76-1.46)
--- NOTE | 2018-01-31 16:28 | ECHRPT ---
Indication: CVA/TIA CONCLUSIONS The left ventricular systolic function is low normal with an estimated ejection fraction in the rang e of 50- 55%. Normal left ventricular size. Wall thickness is normal. No regional wall motion abnormalities are present. Aortic valve sclerosis is present. Xvao-hy-wgskixbm aortic valve regurgitation. BP: / HR: Rhythm: Sinus MEASUREMENTS (Male / Female) Normal Values Technical Quality:Excellent 2D ECHO LV Diastolic Diameter PLAX 4.5 cm 4.2 - 5.9 / 3.9 - 5.3 cm LV Systolic Diameter PLAX 3.5 cm IVS Diastolic Thickness 1.0 cm 0.6 - 1.0 / 0.6 - 0.9 cm LVPW Diastolic Thickness 1.0 cm 0.6 - 1.0 / 0.6 - 0.9 cm LV Relative Wall Thickness 0.4 RV Internal Dim ED PLAX 2.7 cm LVOT Diameter 2.0 cm LA Systolic Diameter LX 3.2 cm 3.0 - 4.0 / 2.7 - 3.8 cm LV Ejection Fraction MOD 4C 51.0 % LV Ejection Fraction 4C AL 53.6 % M-MODE Aortic Root Diameter MM 2.7 cm LA Systolic Diameter MM 3.3 cm LA Ao Ratio MM 1.2 AV Cusp Separation MM 2.0 cm DOPPLER AV Peak Velocity 118.0 cm/s AV Peak Gradient 5.6 mmHg AI Peak Velocity 433.5 cm/s AI Peak Gradient 75.2 mmHg AI Pressure Half Time 508.5 ms LVOT Peak Velocity 76.0 cm/s LVOT Peak Gradient 2.3 mmHg AV Area Cont Eq pk 2.0 cm MV Area PHT 3.4 cm Mitral E Point Velocity 65.6 cm/s Mitral A Point Velocity 88.8 cm/s Mitral E to A Ratio 0.7 LV E' Lateral Velocity 4.8 cm/s Mitral E to LV E' Lateral Ratio 13.7 LV E' Septal Velocity 3.5 cm/s Mitral E to LV E' Septal Ratio 18.7 PV Peak Velocity 61.1 cm/s PV Peak Gradient 1.5 mmHg FINDINGS LEFT VENTRICLE The left ventricular systolic function is low normal with an estimated ejection fraction in the rang e of 50- 55%. Normal left ventricular size. Wall thickness is normal. No regional wall motion abnormalities are present. RIGHT VENTRICLE Normal right ventricular size and systolic function. LEFT ATRIUM The left atrial size is normal. RIGHT ATRIUM The right atrial size is normal. ATRIAL SEPTUM Normal atrial septal thickness without atrial level shunting by limited color doppler interrogation. AORTA The aortic root and proximal ascending aorta are normal in size on limited imaging. MITRAL VALVE Structurally normal mitral valve. No mitral valve stenosis or regurgitation. AORTIC VALVE Trileaflet aortic valve. Aortic valve sclerosis is present. Mkou-ay-qziuhrbv aortic valve regurgitation. TRICUSPID VALVE Structurally normal tricuspid valve. No tricuspid valve stenosis or regurgitation. PULMONARY VALVE The pulmonary valve is not well visualized. VESSELS The inferior vena cava is normal in size. PERICARDIUM No pericardial effusion. Sumi Buckley MD, FACC (Electronically Signed) Final Date:31 January 2018 16:26
--- NOTE | 2018-01-31 16:49 | OTSOAPIP ---
TIME SESSION COMPLETED: TREATMENT TIME: 0 MINS. CHART REVIEWED. ATTEMPTED 2 TIMES TO SEE PATIENT AND ONCE GETTING AN EEG AND THEN OFF THE FLOOR FOR RADIOLOGY TESTS. WILL FOLLOW TOMORROW. Therapist: SANGITA ADRIAN OT/L Signature on file
[2018-02-01 03:28] VITALS: BP 158/61; PULSE 64; RESP 18; TEMP 97.6; O2SAT 97
--- NOTE | 2018-02-01 07:38 | HHI.PR ---
Subjective Remarks sr Objective Vital Signs Date Time Temp Pulse Resp B/P (MAP) Pulse Ox O2 Delivery O2 Flow Rate FiO2 02/01/18 03:28 97.6 64 18 158/61 (93) 97 01/31/18 23:42 97.7 68 18 163/75 (104) 98 01/31/18 21:16 97.6 72 18 130/77 (94) 97 01/31/18 17:00 98.7 72 14 135/72 (93) 90 01/31/18 15:00 70 01/31/18 11:30 97.2 82 14 126/75 (92) 93 01/31/18 08:00 77 01/31/18 08:00 98.6 106 14 152/66 (94) 90 I/O 01/31/18 01/31/18 01/31/18 02/01/18 02/01/18 02/01/18 07:00 15:00 23:00 07:00 15:00 23:00 Intake Total 0 ml 480 ml Balance 0 ml 480 ml Intake Oral 0 ml 480 ml # Voids 0 4 2 # Bowel Movements 0 0 Result Diagram: 01/31/18 0802 01/31/18 0802 Objective Remarks awake alert vff face sym 5/5 lue lle Assessment and Plan Assessment and Plan imp mri read as neg high r cortical diffusion hyperintense probably artifact mra/v neg and us carotid and echo neg x mod aortic regurg holter pend ldl and labs ok probably small sz oob could dc later today on keppra 1000 bid if not any more sx fu office fu Triston Vasquez MD Feb 01, 2018 07:38
[2018-02-01 08:00] VITALS: BP 150/71; PULSE 72; RESP 18; TEMP 97.5; O2SAT 99
[2018-02-01] MEDS: DOCUSATE SODIUM 50 MG/SENNA 8.6 MG TAB PO SCH (08:29)
[2018-02-01] MEDS: SODIUM CHLORIDE 0.9% FLUSH 10 ML FLUSH IV FLUSH SCH (08:30)
[2018-02-01] MEDS ORDERED: levETIRAcetam 500 MG TAB PO SCH (09:00)
[2018-02-01] MEDS: SODIUM CHLOR 0.9% 1000 ML INJ 1,000 ML IV SCH (11:32)
[2018-02-01 12:00] VITALS: BP 146/94; PULSE 68; RESP 18; TEMP 97.8; O2SAT 100
--- NOTE | 2018-02-01 13:44 | HHI.PR ---
Subjective Remarks doing great, no headaches, nausea or vomiting no weakness or numbness readmitted with some tingling sensation of the right hand Objective Vitals Vital Signs Date Time Temp Pulse Resp B/P (MAP) Pulse Ox O2 Delivery O2 Flow Rate FiO2 02/01/18 12:00 97.8 68 18 146/94 (111) 100 02/01/18 08:00 97.5 72 18 150/71 (97) 99 02/01/18 03:28 97.6 64 18 158/61 (93) 97 01/31/18 23:42 97.7 68 18 163/75 (104) 98 01/31/18 21:16 97.6 72 18 130/77 (94) 97 01/31/18 17:00 98.7 72 14 135/72 (93) 90 01/31/18 15:00 70 I/O 01/31/18 01/31/18 01/31/18 02/01/18 02/01/18 02/01/18 07:00 15:00 23:00 07:00 15:00 23:00 Intake Total 0 ml 480 ml Balance 0 ml 480 ml Intake Oral 0 ml 480 ml # Voids 0 4 2 # Bowel Movements 0 0 Result Diagram: 01/31/18 0802 01/31/18 0802 Imaging Last Impressions Brain MRI 01/31/18 0852 Signed Impressions: CONCLUSION: 1. Subdural drain with mixed acute and chronic right subdural hematoma measuri ng up to about 7 mm in thickness with 3 mm of gykfz-ov-tzdk midline shift. No r ecent infarct. Head/Brain Mag Res Venography 01/31/18 0000 Signed Impressions: CONCLUSION: 1. Negative MRV Brain with and without contrast. Head Magnetic Resonance Angiography 01/31/18 Signed Impressions: CONCLUSION: 1. Negative MRA of the brain Carotid Artery Ultrasound 01/31/18 0000 Signed Impressions: CONCLUSION: Negative examination for a hemodynamically significant carotid leandra nosis. Charles Daley MD FACR Objective Remarks awake and alert, no acute distrees anicteric, pupils equally reactive, EOM full range of higinio no nuchal rigidity'lungs- clear regular rhythm abdomen soft, nontender extremites no edema gait steady, no ataxia grossly no sensory deficits motor 5/5 A/P Problem List: (1) CVA (cerebral vascular accident) ICD Code: I63.9 - Cerebral infarction, unspecified Status: Acute (2) HTN (hypertension) ICD Code: I10 - Essential (primary) hypertension Status: Acute (3) Subdural hematoma ICD Code: S06.5X9A - Traumatic subdural hemorrhage with loss of consciousness of unspecified duration, initial encounter Status: Acute (4) S/P SDH evacuation Status: Acute Assessment and Plan 62-year-old female with history of hypertension and recent admission to [facility] 01/26/18-01/30/18 for subdural hematoma status post nicole hole and evacuation, presents with acute onset of left-sided deficit. Possible SZ with recent admission 01/26-01/30 for SDH with right to left shift s/p nicole hole evacuation by Dr. Gomez. Discharged 01/30, Returned to [facility] ED 2 hours after discharge for new onset LUE paresthesias/weakness, left perioral paresthesias, and worsening headache. Repeat Head CT done at [facility] reviewed, shows interval right frontal cranial nicole hole with decrease in the chronic right subdural hematoma; still a small amount of extra-axial low-attenuation fluid; no acute hemorrhage; there is low attenuation change in the white matter most consistent with chronic age-related small vessel ischemic change; no acute infarction". neuro stable Keppra increased to 1 gm bid good lipid panel, A1C Hypertension: -asked RN to check and document VS -holding antihypertensives for now until CVA ruled out -will restart Norvasc 10mg and hydralazine 25mg q8h Headache:improved Dc home todayOP ff up with PCP in 48 hours OP ff up with neurology and Neursourgery as planned from last DC Claudia Cardozo MD Feb 01, 2018 13:44
--- NOTE | 2018-02-01 13:48 | HHI.FF ---
Face to Face Verification Diagnosis: (1) Subdural hematoma (2) S/P SDH evacuation (3) HTN (hypertension) Physical Therapy Order: Evaluate and Treat, Improve ambulation Home Health Nursing Order: Medical education Signs/symptoms of disease process Wound care and dressing changes Nursing assessment with vital signs [employer] Work[employer] Order: To Evaluate: Living conditions/environment, Support services I have seen patient Farheen Valenzuela on 02/01/18. My clinical findings support the need for the requested home health care services because: Need for psychosocial assistance High risk of falls I certify that my clinical findings support that this patient is homebound because: Need for psychosocial assistance Claudia Cardozo MD Feb 01, 2018 13:48
[2018-02-01] MEDS ORDERED: LEVE500 PO (13:50)
[2018-02-01] MEDS ORDERED: hydrALAZINE HCL 25 MG TAB PO SCH (14:00)
--- NOTE | 2018-02-01 14:41 | HHI.NSPN ---
(Karol Hilario) Note Status Status: Progress Note (Karol Hilario) Interval History Interval History Ms. Valenzuela is a 62 male who underwent a right frontal bur hole for evacuation of subdural hematoma on 01/26/2018. She was discharged yesterday in stable conditions. Yesterday after discharge, she developed numbness tingling to the left side of her mouth and left hand which concerned her and so she returned back to the ED for evaluation. She has been evaluated by neurology, MRI studies are pending. She is getting prepped for an EEG. She reports her symptoms has resolved, currently is feeling better. Denies any seizure-like activities, fevers, chills, vomiting, focal weakness. Neurosurgery called to reevaluate. 02/01: Reports of lightheadedness upon getting up out of bed, otherwise no further recurrent episodes of paresthesias, denies focal weakness, seizures, vomiting or headaches. Neurology workup MRIs completed. (Karol Hilario) Labs, Micro, & Vital Signs Results Date Time Temp Pulse Resp B/P (MAP) Pulse Ox O2 Delivery O2 Flow Rate FiO2 02/01/18 12:00 97.8 68 18 146/94 (111) 100 02/01/18 08:00 97.5 72 18 150/71 (97) 99 02/01/18 03:28 97.6 64 18 158/61 (93) 97 01/31/18 23:42 97.7 68 18 163/75 (104) 98 01/31/18 21:16 97.6 72 18 130/77 (94) 97 01/31/18 17:00 98.7 72 14 135/72 (93) 90 01/31/18 15:00 70 Constitutional Vital Signs Date Time Temp Pulse Resp B/P (MAP) Pulse Ox O2 Delivery O2 Flow Rate FiO2 02/01/18 12:00 97.8 68 18 146/94 (111) 100 02/01/18 08:00 97.5 72 18 150/71 (97) 99 02/01/18 03:28 97.6 64 18 158/61 (93) 97 01/31/18 23:42 97.7 68 18 163/75 (104) 98 01/31/18 21:16 97.6 72 18 130/77 (94) 97 01/31/18 17:00 98.7 72 14 135/72 (93) 90 01/31/18 15:00 70 (Karol Hilario) Review of Systems Constitutional: DENIES: Fever, Chills Cardiovascular: DENIES: Chest pain Neurologic: DENIES: Localized weakness, Paresthesias, Seizures (Karol Hilario) Physical Exam Ms. Valenzuela is alert, awake and oriented to time, place and person. Speech is fluent. Follows commands well. Surgical wound healing well without signs of infection. Cranial nerve examination demonstrates the pupils to be equal, round, and reactive to light. Extra-ocular movements are intact. Facial motor and sensory function are normal and symmetrical. Other cranial nerves are intact. Neck is soft and supple. Motor: moves all four extremities well with good strength. Sensory examination is intact to light touch in both the upper and lower extremities, symmetrically. Cerebellar examination is intact to nuomzl-nz-[id number] test (Karol Hilario) Medications Current Medications Current Medications Medications (Trade) Dose Ordered Sig/Bianka Route PRN Reason Start Time Stop Time Status Last Admin Dose Admin Sodium Chloride (NS Flush) 2 ml UNSCH PRN IV FLUSH FLUSH AFTER USING IV ACCESS 01/30/18 23:45 Sodium Chloride (NS Flush) 2 ml BID IV FLUSH 01/31/18 09:00 02/01/18 08:30 Metoclopramide HCl (Reglan Inj) 5 mg Q6H PRN IV PUSH NAUSEA OR VOMITING 01/30/18 23:45 Acetaminophen (Tylenol) 650 mg Q6H PRN PO headache/fever/pain1-4 01/30/18 23:45 Acetaminophen/ Hydrocodone Bitart ([place] 5-325 Mg) 1 tab Q4H PRN PO PAIN SCALE 5-10 01/30/18 23:45 Morphine Sulfate (Morphine Inj) 2 mg Q4H PRN IV PUSH breakthrough pain 01/30/18 23:45 Naloxone HCl (Narcan Inj) 0.4 mg UNSCH PRN IV PUSH SEE LABEL COMMENTS 01/30/18 23:45 Senna/Docusate Sodium (Angélica-Colace) 1 tab BID PO 01/31/18 09:00 02/01/18 08:29 Magnesium Hydroxide (Milk Of Magnesia Liq) 30 ml Q12H PRN PO Mild constipation 01/30/18 23:45 02/01/18 08:29 Sennosides (Senokot) 17.2 mg Q12H PRN PO Moderate constipation 01/30/18 23:45 Bisacodyl (Dulcolax Supp) 10 mg DAILY PRN RECTAL SEVERE CONSITIPATION 01/30/18 23:45 Lactulose (Lactulose Liq) 30 ml DAILY PRN PO SEVERE CONSITIPATION 01/30/18 23:45 Ondansetron HCl (Zofran Odt) 4 mg Q6H PRN PO nausea 01/30/18 23:45 Enalaprilat (Vasotec Inj) 1.25 mg Q4H PRN IV PUSH For SBP > 220 or DBP > 120 01/30/18 23:45 Levetriacetam (Keppra) 1,000 mg Q12HR PO 02/01/18 09:00 02/01/18 08:29 Amlodipine Besylate (Norvasc) 10 mg DAILY PO 02/01/18 13:30 Hydralazine HCl (Apresoline) 25 mg Q8H PO 02/01/18 14:00 (Karol Hilario) Medical Decision Making MDM Remarks 62-year-old female who underwent a right frontal nicole hole for evacuation of subdural hematoma 01/26/2018 Last Impressions Brain MRI 01/31/18 0852 Signed Impressions: CONCLUSION: 1. Subdural drain with mixed acute and chronic right subdural hematoma measuri ng up to about 7 mm in thickness with 3 mm of nnpya-px-[id number] midline shift. No r ecent infarct. Head/Brain Mag Res Venography 01/31/18 0000 Signed Impressions: CONCLUSION: 1. Negative MRV Brain with and without contrast. Head Magnetic Resonance Angiography 01/31/18 0000 Signed Impressions: CONCLUSION: 1. Negative MRA of the brain Carotid Artery Ultrasound 01/31/18 0000 Signed Impressions: CONCLUSION: Negative examination for a hemodynamically significant carotid leandra nosis. Charles Daley MD FACR (Karol Hilario) Plan Plan Remarks MRIs reviewed, no acute infarcts, no significant stenosis or venous thrombosis Possible small focal seizure, Keppra has been increased Continue nonsurgical treatment of small residual subdural hematoma Cleared to be discharged from neurosurgical standpoint when medically cleared Advised to follow-up with us versus PCP or urgent care locally for staple removal next week (Karol Hilario) Attending Statement The exam, history, and the medical decision-making described in the above note were completed with the assistance of the mid-level provider. I reviewed and agree with the findings presented. I attest that I had a wlht-ek-crml encounter with the patient on the same day, and personally performed and documented my assessment and findings in the medical record. (Luis Gomez MD) Karol Hilario Feb 01, 2018 14:41 Luis Gomez MD Feb 01, 2018 18:17
[2018-02-01 16:00] VITALS: BP 153/72; PULSE 75; RESP 18; TEMP 97.8; O2SAT 99
--- NOTE | 2018-02-02 21:57 | HM ---
Date Performed: 01/31/2018 Time Performed: 14:03:00 HOOKUP DATE: 01/31/18 02:03:00 PM Mon ANALYSIS START TIME: 01/31/2018 2:08:00 PM ANALYSIS END TIME: 02/01/2018 12:18:08 PM PATIENT AGE: 62 PATIENT HEIGHT PATIENT WEIGHT DRUG LIST PATIENT DIAGNOSIS: stroke TEST NARRATIVE: The patient's average heart rate was 69 BPM. No episodes of tachycardia wer e noted. No episodes of bradycardia were noted. No pauses exceeding 2.0 seconds were noted. 2919 ventricular ectopics, which represented 3% of the total beat count, were noted. The highest isaias tricular ectopic frequency occurred from 09:00 AM to 10:00 AM Tue. During this time 480 VE(s) occurr ed. Ventricular ectopics were observed as 2706 isolated beat(s), as 97 couplet(s) and as 5 run(s). Some of the ventricular beats occurred in bigeminal cycles. 158 supraventricular ectopics, which represented < 1% of the total beat count, were noted. The highest supraventricular ectopic frequency occurred from 04:00 AM to 05:00 AM Tue. During this time 34 SVE(s) occurred. No episodes of ST depression (defined as -1.0 mm or more) were noted in channel 1. No episodes of ST depression (defin ed as -1.0 mm or more) were noted in channel 2. No episodes of ST depression (defined as -1.0 mm or more) were noted in channel 3. TEST INTERPRETATION: Sinus rhythm Very frequent PVCs PACs Signed by : Sumi Buckley
== END 2018-02-01 17:30 | disposition home health service (06) | DRG 66 ==
LOC: N06A 23:29
PROVIDERS: ADMIT Internal Medicine; ATTEND Internal Medicine
DX: I62.00 Nontraumatic subdural hemorrhage, unspecified (principal); R56.9 Unspecified convulsions; I12.9 Hypertensive chronic kidney disease with stage 1 through stage 4 chronic kidney disease, or unspecified chronic kidney disease; N18.9 Chronic kidney disease, unspecified; E03.9 Hypothyroidism, unspecified
CPT/HCPCS: 70544; 70546; 70553; 80053; 80061; 82607; 83036; 84439; 84443; 85025; 85610; 86038; 86039; 86592; 93225; 93226; 93306; 93880; 95819; A9579; J7030